=== PATIENT | female | born 1940 | race Caucasian/White ===

== ENCOUNTER → 2017-03-31 | Outpatient (CLI) | payer MEDICARE, BC ==
--- NOTE | 2017-03-31 14:28 | MM ---
Reason for exam: additional evaluation requested from prior study. Last mammogram was performed 1 year and 1 month ago. History: Patient is postmenopausal and has history of breast cancer at age 73. Family history of breast cancer in maternal aunt at age 75. Malignant US RT VAD breast biopsy of the right breast, February 10, 2014. Mastectomy of the right breast, 2013. Benign right mammotome panel of the right breast, September 03, 2005. Benign excisional biopsy of the right breast, July 23, 2001. Benign stereotactic core biopsy of the right breast, July 05, 2001. Core biopsy of the right breast. 2 excisional biopsies of the right breast. Physical Findings: Nurse did not find any significant physical abnormalities on exam. MG 3D Diag Mammo W/Cad LT CC and MLO view(s) were taken of the left breast. Prior study comparison: March 14, 2016, left breast MG 3d diag mammo w/cad LT. There are scattered fibroglandular densities. Calcifications stable. No significant new findings when compared with previous films. These results were verbally communicated with the patient and result sheet given to the patient on 03/31/17. ASSESSMENT: Benign, BI-RAD 2 RECOMMENDATION: Routine screening mammogram of the left breast in 1 year.
== END | disposition home or self-care (01) ==
LOC: RADMAMWWP 10:55
PROVIDERS: ATTEND Internal Medicine
DX: Z08 Encounter for follow-up examination after completed treatment for malignant neoplasm (principal); Z85.3 Personal history of malignant neoplasm of breast
CPT/HCPCS: G0206; G0279

== ENCOUNTER → 2018-05-11 | Outpatient (CLI) | payer MEDICARE, BC ==
--- NOTE | 2018-05-11 15:19 | MM ---
Reason for exam: additional evaluation requested from prior study. Last mammogram was performed 1 year and 1 month ago. History: Patient is postmenopausal and has history of breast cancer at age 73. Family history of breast cancer in maternal aunt at age 75. Malignant US RT VAD breast biopsy of the right breast, February 10, 2014. Mastectomy of the right breast, 2013. Benign right mammotome panel of the right breast, September 03, 2005. Benign excisional biopsy of the right breast, July 23, 2001. Benign stereotactic core biopsy of the right breast, July 05, 2001. Core biopsy of the right breast. 2 excisional biopsies of the right breast. Physical Findings: Nurse did not find any significant physical abnormalities on exam. MG 3D Diag Mammo W/Cad LT CC, MLO, and ML view(s) were taken of the left breast. Prior study comparison: March 31, 2017, left breast MG 3d diag mammo w/cad LT. March 14, 2016, left breast MG 3d diag mammo w/cad LT. There are scattered fibroglandular densities. Stable benign calcifications. There is no discrete abnormality. No significant new findings when compared with previous films. These results were verbally communicated with the patient and result sheet given to the patient on 05/11/18. ASSESSMENT: Benign, BI-RAD 2 RECOMMENDATION: Follow-up diagnostic mammogram of the left breast in 1 year.
--- NOTE | 2018-05-11 15:51 | BD ---
EXAMINATION TYPE: Axial Bone Density DATE OF EXAM: 05/11/2018 COMPARISON: 04/15/2016 CLINICAL HISTORY: Post menopausal female. Osteoporosis screening. Height: 58.7 IN Weight: 150 LBS RISK FACTORS HISTORY OF: Active: MODERATE Diet low in dairy products/other sources of calcium: YES Postmenopausal woman: AGE 52 Lost more than 2 inches in height since high school: YES 5 " MEDICATIONS: Thyroid Medications: YES Which medication: Levothyroxine How Lon+ YEARS Additional Medications: VIT D, CALCIUM, IBUPROFEN, ZANTAX, LEVOXYL, NORVASC, AVALIDE, ARIMIDEX, METFO RMIN Additional History: BREAST CANCER WITH CHEMO EXAM MEASUREMENTS: Bone mineral densitometry was performed using the [employer]. Bone mineral density as measured about the Lumbar spine is: ----- L1-L4(G/cm2): 0.998 T Score Values are as follows: ----- L2: -2.4 ----- L3: -1.3 ----- L4: -0.6 ----- L1-L4: -1.5 Bone mineral density has: Increased 9.6% since study of: 04/15/2016 Bone mineral density about the R hip (g/cm2): 0.710 Bone mineral density about the L hip (g/cm2): 0.665 T Score values are as follows: -----R Neck: -2.4 -----L Neck: -2.7 -----R Total: -1.9 -----L Total: -2.0 Bone mineral density has: Decreased -5.8% since study of: 04/15/2016 IMPRESSION: Osteoporosis (T Score less than -2.5). There is increased fracture risk and therapy is usually indicated based on age. Re-Screen 1-2 years. NOTE: T-SCORE=SD OF THE YOUNG ADULT MEAN.
== END | disposition home or self-care (01) ==
LOC: RADMAMWWP 13:33
PROVIDERS: ATTEND Internal Medicine
DX: Z08 Encounter for follow-up examination after completed treatment for malignant neoplasm (principal); Z85.3 Personal history of malignant neoplasm of breast; M81.0 Age-related osteoporosis without current pathological fracture
CPT/HCPCS: 77080; 77065; G0279; 77061

== ENCOUNTER → 2018-08-31 | Outpatient (CLI) | payer MEDICARE, BC ==
--- NOTE | 2018-08-31 13:13 | ECHOF ---
Referral Reason:I10 Hypertension I34.0 Mitral regurgitation MEASUREMENTS -------- HEIGHT: 152.4 cm WEIGHT: 67.6 kg BP: IVSd: 1.1 cm (0.6 - 1.1) LVIDd: 3.3 cm (3.9 - 5.3) LVPWd: 1.1 cm (0.6 - 1.1) IVSs: 1.3 cm LVIDs: 2.3 cm LVPWs: 1.3 cm LAESV Index (A-L): 25.56 ml/m Ao Diam: 2.6 cm (2.0 - 3.7) AV Cusp: 1.3 cm (1.5 - 2.6) LA Diam: 2.5 cm (2.7 - 3.8) MV E Naun: 0.75 m/s MV DecT: 400 ms MV A Naun: 1.30 m/s MV E/A Ratio: 0.58 RAP: 5.00 mmHg RVSP: 38.26 mmHg FINDINGS -------- Sinus rhythm. This was a technically adequate study. The left ventricular size is normal. There is borderline concentric left ventricular hypertrophy. Overall left ventricular systolic function is normal with, an EF between 55 - 60 %. The right ventricle is normal in size and function. Normal LA size by volume 22+/-6 ml/m2. The right atrium is normal in size. There is mild aortic valve sclerosis. Trace amount of aortic regurgitation. There is no evidence of aortic stenosis. Mild mitral annular calcification present. There is trace to mild mitral regurgitation. Mild tricuspid regurgitation present. There is borderline pulmonary hypertension. The right ventr icular systolic pressure, as measured by Doppler, is 38.26mmHg. The pulmonic valve was not well visualized. The aortic root size is normal. IVC Not well visulized. There is no pericardial effusion. CONCLUSIONS -------- 1. Sinus rhythm. 2. This was a technically adequate study. 3. The left ventricular size is normal. 4. There is borderline concentric left ventricular hypertrophy. 5. Overall left ventricular systolic function is normal with, an EF between 55 - 60 %. 6. Normal LA size by volume 22+/-6 ml/m2. 7. There is mild aortic valve sclerosis. 8. Trace amount of aortic regurgitation. 9. Mild mitral annular calcification present. 10. There is trace to mild mitral regurgitation. 11. Mild tricuspid regurgitation present. 12. There is borderline pulmonary hypertension. 13. The right ventricular systolic pressure, as measured by Doppler, is 38.26mmHg. 14. The pulmonic valve was not well visualized. 15. The aortic root size is normal. 16. IVC Not well visulized. 17. There is no pericardial effusion. HEALTH SCIENCES MANAGER: Adama Mario RDCS
== END | disposition home or self-care (01) ==
LOC: RADECHMAIN 11:20
PROVIDERS: ATTEND Internal Medicine
DX: I08.3 Combined rheumatic disorders of mitral, aortic and tricuspid valves (principal); I27.20 Pulmonary hypertension, unspecified; I11.9 Hypertensive heart disease without heart failure
CPT/HCPCS: 93306

== ENCOUNTER → 2018-09-20 | Outpatient (CLI) | payer MEDICARE, BC | LOC: LABPAT 12:15 | PROVIDERS: ATTEND Orthopaedic Surgery | DX: Z01.812 Encounter for preprocedural laboratory examination (principal) | CPT/HCPCS: 87070 ==

== ENCOUNTER 2018-09-28 05:24 | Inpatient (IN) | payer MEDICARE, BC ==
[2018-09-22 16:24] VITALS: BMI 28.3
[~2018-09-28 05:24] MED LIST: ACETAMINOPHEN TAB 500 MG TAB PO ONE; DEXAMETHASONE SOD PHOSPHATE 10 MG/ML 1 ML VIAL IV ONE; LIDOCAINE 1% 20 ML VIAL (10MG/ML) FOR IV START INTRADERMA PRN; MELOXICAM 7.5 MG TAB PO ONE; MIDAZOLAM (PF) 2 MG/2 ML VIAL IV PRN; ONDANSETRON 4 MG/2 ML VIAL IVP ONE; TRANEXAMIC ACID 1,000 MG in SODIUM CHLORIDE 0.9% 50 ML IVPB ONE; ceFAZolin IN SWFI 2 GM/20 ML SYRINGE IVP ONE; fentaNYL (PF) 50 MCG/ML 2 ML AMP IV PRN
[2018-09-28] MEDS ORDERED: ROPIVACAINE 246.25 MG, EPINEPHrine 0.5 MG, KETOROLAC 30 MG, cloNIDine HCL/PF 80 MCG, WA... MISCELLANE ONE ×5 (05:57)
[2018-09-28 06:17] LABS: Glucose,Whole Blood 144 mg/dL (75-99)
[2018-09-28] MEDS: LACTATED RINGERS 1,000 ML IV SCH (06:32)
[2018-09-28] MEDS ORDERED: fentaNYL (PF) 50 MCG/ML 2 ML AMP ONE (06:55)
[2018-09-28] MEDS ORDERED: SODIUM CHLORIDE 0.9% 100 ML BAG ONE (06:55)
[2018-09-28] MEDS ORDERED: TRANEXAMIC ACID 1,000 MG/10 ML VIAL ONE (06:55)
[2018-09-28] MEDS ORDERED: MIDAZOLAM 2 MG/2 ML VIAL ONE (06:55)
[2018-09-28] MEDS ORDERED: PROPOFOL 10 MG/ML 20 ML VIAL IV ONE (06:55)
[2018-09-28] MEDS ORDERED: DIAZEPAM 5 MG TAB PO PRN (06:56)
[2018-09-28] MEDS ORDERED: BISACODYL 10 MG SUPP RECTAL PRN (06:56)
[2018-09-28] MEDS ORDERED: NALOXONE 0.4 MG/ML 1 ML VIAL IV PRN (06:56)
[2018-09-28] MEDS ORDERED: NA PHOS,M-B/NA PHOS,DI-BA 133 ML ENEMA RECTAL PRN (06:56)
[2018-09-28] MEDS ORDERED: MAGNESIUM HYDROXIDE 2,400 MG/10 ML CUP PO PRN (06:56)
[2018-09-28] MEDS ORDERED: ONDANSETRON 4 MG/2 ML VIAL IVP PRN (06:56)
[2018-09-28] MEDS ORDERED: HYDROcodone/APAP 5-325MG 1 EACH TAB PO PRN (06:56)
[2018-09-28] MEDS ORDERED: HYDROmorphone 1 MG/ML 1 ML SYRINGE IVP PRN ×3 (06:56)
[2018-09-28] MEDS ORDERED: ceFAZolin 3,000 MG in SODIUM CHLORIDE 0.9% IRRIGATIO 3,000 ML IRRIGATION ONE (07:00)
[2018-09-28] MEDS ORDERED: ROPIVACAINE 1,100 MG, SODIUM CHLORIDE 0.9% 500 ML 330 ML MISCELLANE PRN ×2 (07:24)
--- NOTE | 2018-09-28 08:35 | P.OP ---
Date of Procedure: 09/28/18 Preoperative Diagnosis: Severe osteoarthritis right knee Postoperative Diagnosis: Severe osteoarthritis right knee Procedure(s) Performed: Right total knee arthroplasty Implants: [employer]edo [employer]hew Journey II BCS Oxinium bi-cruciate stabilized femoral component size 5, right [employer] right nonporous tibial baseplate size 4 Esc[employer] Journey II, XLPE constrained articular insert, size 9 mm, Size 3- 4 right [employer] BCS resurfacing oval patellar component, 29 mm All components were cemented using Palacos R bone cement.. The articulation is Oxinium on polyethylene. Anesthesia: spinal Surgeon: Lane Aparicio Punch Card Operator #1: Destiney Pelaez Estimated Blood Loss (ml): 25 Pathology: other (Bone and cartilage) Condition: stable Disposition: PACU Indications for Procedure: After failure of conservative treatment we discussed the surgical and nonsurgical treatment options at length. Patient wishes to proceed with a total knee arthroplasty. Complications specific to this procedure were discussed at length, including but not limited to infection, bleeding, stiffness , and nerve injury. Patient is aware of all these complications and informed consent was obtained Operative Findings: The operative findings are consistent with severe osteoarthritis the right knee with a significant valgus deformity Description of Procedure: Patient was seen in the preoperative area consent was reviewed and operative site was marked with a skin marker. Patient was then brought to the operating room and given preoperative antibiotics intravenously. A spinal anesthetic was administered by the anesthesia department. A tourniquet was placed on the upper thigh and the lower extremity was prepped and draped in usual sterile fashion. A gram of transexamic acid was given. A universal timeout was then performed which confirmed the patient's name, surgical site, ALLERGIES, and consent. The lower extremity was then exsanguinated and tourniquet was inflated to 250 mmHg. A standard and anterior midline approach to the knee was performed. The skin and subcutaneous tissue was dissected down to the patellar tendon. A medial parapatellar arthrotomy was then performed. The knee was then extended, the patellar was everted, and the knee was again flexed. Anterior horns of both menisci were excised, and a minimal medial release was performed because of the valgus deformity of the knee.. On gross visual inspection, there was complete loss of articular cartilage in all 3 compartments of the knee. There was also significant cartilage damage in the lateral compartment. There were multiple periarticular osteophytes which were then removed with a Ronguer. The femoral canal was then opened with the appropriate drill, and the intramedullary femoral cutting guide was then placed and set for 5 of valgus. The distal femoral cutting block was then pinned in place, and the distal femur was then cut. The cutting block was then removed and the cut was checked for flatness. Next, the sizing guide was then placed and set for 3 external rotation based off of the epicondylar axis and Whitesides line. After the femur was sized, the appropriate cutting block was then pinned in place. The anterior condyles were cut without notching. The posterior and chamfer cuts were performed while protecting the collateral ligaments. The cutting block was then removed. Attention was then directed to the tibia. The remaining ACL was removed with a Ronguer, and the tibia was then gently subluxed forward with a large bent knee retractor. Any remaining menisci was excised. The posterior lateral corner was cauterized in order to cauterize the lateral geniculate artery. The extra medullary tibial cutting guide was then placed, set for the appropriate rotation , slope, and depth of resection. The proximal tibia cutting guide was then pinned in place. Proximal tibia was then cut and sized. The femoral trial was then placed. The box cutting guide was placed and then using the appropriate reamer, the bone was reamed for the box. Then the box osteotome was used to finish the reaming. Next trials were then placed with the appropriate-sized insert. The knee was able to fully extend and flex to 130 and was stable throughout all range of motion. The knee was then extended, patella everted. Patella was then measured, and then using an osteotomy guide, the patella was cut at the appropriate level. The patella was then measured and drilled and the patella trial was then placed. The knee was then taken through range of motion with the patella trial and the patella tracked normally. The knee was then extended patella trial was then removed and the patella was everted. Knee was then flexed and lug holes were drilled through the femoral trial and the femoral trial was then removed. The tibial was then exposed, and the tibial broach guide was then pinned in place after it was set for the appropriate rotation to allow for the most coverage without overhang. The tibia was then broached. The cut surfaces of bone were then irrigated with pulsatile lavage. The posterior structures were injected with the ropivacaine solution. The components were then opened, the cement was mixed, and the components were then cemented in place. The cement was allowed to harden with the knee in full extension. While the cement was hardening, the remaining soft tissues were injected with the ropivacaine solution. After the cemented hardened. The tourniquet was released, and hemostasis was obtained. A second gram of transexamic acid was given. The knee was again irrigated. The knee was again taken through range of motion and found to be stable throughout all range of motion of 0-130, and the patella tracked normally. The fascia was then closed with #2 strata fix suture. The subcutaneous tissue was closed with 3-0 Vicryl and 3-0 strata fix. Dermabond glue was used for the skin, and the patient was placed in a sterile silver dressing. Patient was then transferred to recovery room in stable condition. The household personal assistant MARIA ELENA Finn was required due the complexity surgery and the need for a skilled medical staff assistant. She assisted in positioning, draping, retraction, and closure of the woundclosure of the wound.
--- NOTE | 2018-09-28 09:00 | P.ONQ ---
Anesthesiology Proc Note - PNB - Peripheral Nerve Block Performed Right Adductor Canal Infusion Time Out Performed: Yes Procedure Start Time: 06:35 Procedure Stop Time: 06:48 Indication: Requested by physician Specifically requested for management of pain by : Lane Aparicio Sedation Type: Sedate with meaningful contact maintained Preparation: Sterile Dressing Position: Supine Catheter: Indwelling Needle Types: Other (see comment) (pujunk) Needle Size: 100mm (4") Needle Gauge: 20 Technique: Ultrasound Injectate: 0.5% Ropivacaine (see comment for volume) Blood Aspirated: No Pain Paresthesia on Injection Noted: No Resistance on Injection: Normal Events: Uneventful and Well Tolerated
[2018-09-28] MEDS ORDERED: HYDROmorphone 1 MG/ML 1 ML SYRINGE IVP ONE ×3 (09:23→13:29)
[2018-09-28] MEDS: HYDROmorphone 1 MG/ML 1 ML SYRINGE IVP ONE ×2 (09:31→10:44)
--- NOTE | 2018-09-28 09:35 | XR ---
EXAMINATION TYPE: XR knee limited RT DATE OF EXAM: 09/28/2018 CLINICAL HISTORY: Right knee pain and arthritis status post total knee replacement. TECHNIQUE: Portable AP and crosstable lateral views of the right knee are obtained immediately posto peratively. COMPARISON: None FINDINGS: Metallic hardware from total right knee arthroplasty is seen and appears satisfactory in a lignment and position. There is evidence of recent surgery with diffuse subcutaneous gas soft tissue swelling noted. IMPRESSION: METALLIC HARDWARE FROM TOTAL RIGHT KNEE ARTHROPLASTY IS SATISFACTORY IN ALIGNMENT.
[2018-09-28] MEDS ORDERED: LACTATED RINGERS 1,000 ML IV ONE (11:29)
[2018-09-28] MEDS ORDERED: FAMOTIDINE 20 MG TAB PO PRN (17:20)
[2018-09-28] MEDS ORDERED: ARTIFICIAL TEARS-HYPROMELLOSE DROPS 15 ML BTL BOTH EYES PRN (17:20)
[2018-09-28] MEDS: ceFAZolin IN SWFI 2 GM/20 ML SYRINGE IVP SCH (17:44)
[2018-09-28] MEDS: SODIUM CHLORIDE 0.9% 1,000 ML IV SCH (19:35)
[2018-09-28] MEDS: ASPIRIN 325 MG TAB PO SCH (20:34)
[2018-09-28] MEDS: LOSARTAN 50 MG TAB PO SCH (20:34)
[2018-09-28] MEDS: HYDROCHLOROTHIAZIDE 25 MG TAB PO SCH (20:34)
[2018-09-28] MEDS: SENNOSIDES-DOCUSATE SODIUM 1 EACH TAB PO SCH (20:34)
[2018-09-28] MEDS: metFORMIN 500 MG TAB PO SCH (20:34)
[2018-09-28 20:59] LABS: Glucose,Whole Blood 186 mg/dL (75-99)
[2018-09-28] MEDS: ANASTROZOLE 1 MG TAB PO SCH (21:57)
--- NOTE | 2018-09-28 23:52 | CONS ---
CONSULTATION ATTENDING PHYSICIAN: Dr. Lane Aparicio. ATTENDING PHYSICIAN: Dr. Rubina Escobar. CHIEF COMPLAINT: Re-evaluation post surgery. HISTORY OF PRESENT ILLNESS: This is an elderly female who has undergone right total knee arthroplasty. The patient has significant degenerative arthritis and thus had been scheduled for this. She is doing relatively well postop. Pain is adequately controlled. She has been up with assistance and walked around the room. She denies any symptoms otherwise. Initially felt slightly lightheaded. She has underlying history of hypertension and diabetes mellitus. History of previous carcinoma of the breast. PAST MEDICAL HISTORY: As mentioned above, history of hypertension, diabetes mellitus, carcinoma of the breast tissue, degenerative arthritis. Significant also for mitral regurg. PAST SURGICAL HISTORY: Significant for cataracts, tonsillectomy, right mastectomy. PERSONAL HISTORY: Never smoker. Alcohol none. MEDICATIONS: Medication at home include: 1. Avapro 150/12.5 daily. 2. Metformin 500 mg daily. 3. Levothyroxine 112 mcg daily. 4. Amlodipine 5 mg daily. 5. Arimidex 1 mg tablet daily. SOCIAL HISTORY: Patient is . Her son does live with her. REVIEW OF SYSTEMS: NEURO: Denies any headaches or dizziness. PSYCH: No anxiety. Her apprehension as settled down. CARDIAC: Denies chest pain, angina, palpitations. RESPIRATORY: Denies shortness of breath, cough, hemoptysis. GI: No nausea, vomiting, abdominal pain, diarrhea. No bowel movements. : No symptoms of dysuria or hematuria. EXTREMITIES: Denies much pain in the right knee. HEMATOLOGIC: No anemia or bleeding disorders. ENDOCRINE: History of diabetes mellitus and hypothyroidism, on medical therapy. SKIN: Denies any rash or breakdown. CONSTITUTIONAL: No fevers or chills. PHYSICAL EXAMINATION: Pleasant female, at present in no distress. VITAL SIGNS: Temperature was recorded earlier at 97.8, pulse 83, respirations 16, blood pressure 147/70, pulse ox of 97 percent on room air. HEENT: Normocephalic. NECK: No JVD. CHEST: Clear to auscultation. CARDIAC: Normal S1, S2 with no gallops, murmurs. Systolic murmur 2/6 at the apex. ABDOMEN: Soft. Bowel sounds present. EXTREMITIES: No edema. Good pulses upper extremities. Mildly decreased pedal pulses. NEUROLOGIC: Awake, alert, oriented x3 with well-coordinated movements in both upper extremities. LABORATORY ASSESSMENT: Blood sugar 144 this morning. ASSESSMENT: 1. Diabetes mellitus, on close monitoring and coverage with insulin. 2. Hypertension, controlled. 3. History of carcinoma of the breast on medical therapy. 4. Status post right total knee arthroplasty. PLAN: The patient is stable. Continue present medical regimen. Patient's present medications are reviewed and reconciled and are reordered. MMODL / IJN: [id number] /
[2018-09-29] MEDS: HYDROcodone/APAP 5-325MG 1 EACH TAB PO PRN ×5 (00:36→21:36)
[2018-09-29] MEDS: hydrOXYzine PAMOATE 25 MG CAP PO PRN ×5 (00:37→21:35)
[2018-09-29] MEDS: ceFAZolin IN SWFI 2 GM/20 ML SYRINGE IVP SCH (00:38)
[2018-09-29] MEDS: SODIUM CHLORIDE 0.9% 1,000 ML IV SCH ×2 (00:38→18:41)
[2018-09-29] MEDS: LACTATED RINGERS 1,000 ML IV SCH (01:43)
[2018-09-29] MEDS: LEVOTHYROXINE 112 MCG TAB PO SCH (06:10)
[2018-09-29 07:10] LABS: Glucose,Whole Blood 110 mg/dL (75-99)
--- NOTE | 2018-09-29 07:31 | P.PN ---
Progress Note - Text Progress Note Date: 09/29/18 Postoperative day # 1 status post total knee arthroplasty, under spinal anesthesia, and adductor canal catheter placed for postoperative analgesia, currently at ropivacaine 0.2% 8 mL per hour and continuous infusion, visual analogue scale is 2-3/10, patient using oral pain medication for breakthrough pain. Assessment and plan= Acute postoperative pain, adductor canal catheter for pain control, pain is well controlled ,we'll continue the same management.
[2018-09-29 08:33] LABS: Basophils % (A) 0 %; Eosinophils # (A) 0.1 k/uL (0-0.7); Eosinophils % (A) 0 %; HCT 31.8 % (34.0-46.0); HGB 10.1 gm/dL (11.4-16.0); Lymphocytes # (A) 1.5 k/uL (1.0-4.8); Lymphocytes % (A) 12 %; MCH 26.3 pg (25.0-35.0); MCHC 31.8 g/dL (31.0-37.0); MCV 82.6 fL (80.0-100.0); Mean Platelet Volume 6.6; Monocytes # (A) 0.9 k/uL (0-1.0); Monocytes % (A) 7 %; Neutrophils # (A) 10.5 k/uL (1.3-7.7); Neutrophils % (A) 80 %; Platelet Count 360 k/uL (150-450); RBC 3.85 m/uL (3.80-5.40); RDW 14.3 % (11.5-15.5); WBC 13.1 k/uL (3.8-10.6)
--- NOTE | 2018-09-29 09:15 | P.PN ---
Subjective Progress Note Date: 09/29/18 This is a 77-year-old female status post right total knee arthroplasty. This is postoperative day #1. Patient is seen and evaluated at bedside with Dr. Lane Aparicio. Patient states that the right knee is sore, but her pain is controlled. Patient denies any fever/chills, numbness, weakness, tingling, abdominal pain, shortness of breath or chest pain. Objective - Vital Signs Vital signs: Vital Signs Temp 97.9 F 09/29/18 00:14 Pulse 76 09/29/18 00:14 Resp 18 09/29/18 00:14 BP 137/82 09/29/18 00:14 Pulse Ox 98 09/29/18 00:14 Intake & Output 09/28/18 09/29/18 09/29/18 18:59 06:59 18:59 Intake Total 501 1300 120 Output Total 25 Balance 476 1300 120 Weight 65.771 kg Intake: IV 501 Intake, IV Titration 1040 Amount Sodium Chloride 0.9% 1, 1040 000 ml @ 65 mls/hr IV . [id number] KENNETH Rx#:[id number] Oral 260 120 Output: Estimated Blood Loss 25 Other: Voiding Method Toilet # Voids 2 - Exam Vital signs are stable. Patient is in no acute distress and is alert and oriented 3. Calf is soft and nontender to palpation. Dressing is clean, dry, and intact. Patient has full foot and ankle motion without pain or difficulty. Neurovascular status and circulatory status are intact. - Labs CBC & Chem 7: 09/29/18 07:16 Labs: Abnormal Lab Results - Last 24 Hours (Table) 09/28/18 09/29/18 09/29/18 Range/Units 20:47 06:55 07:16 WBC 13.1 H (3.8-10.6) k/uL Hgb 10.1 L (11.4-16.0) gm/dL Hct 31.8 L (34.0-46.0) % Neutrophils # 10.5 H (1.3-7.7) k/uL POC Glucose (mg/dL) 186 H 110 H (75-99) mg/dL Assessment and Plan Assessment: Diabetes mellitus GERD History of GI bleed Hearing disorder Hypertension History of myocardial infarction Thyroid disorder History of breast cancer Neuropathy (1) Primary osteoarthritis of right knee Current Visit: Yes Status: Acute Code(s): M17.11 - UNILATERAL PRIMARY OSTEOARTHRITIS, RIGHT KNEE SNOMED Code(s): 617584379993106 (2) S/P total knee arthroplasty Current Visit: Yes Status: Acute Code(s): Z96.659 - PRESENCE OF UNSPECIFIED ARTIFICIAL KNEE JOINT SNOMED Code(s): 4962485896872 Plan: #1 Continue with routine postoperative care, leave dressing in place for ten days. #2 Anticoagulation with aspirin. #3 Physical therapy and CPM today. #4 Appreciate input from medicine. #5 Anticipate discharge to the [facility] on Thursday.
[2018-09-29] MEDS: MELOXICAM 7.5 MG TAB PO SCH (09:20)
[2018-09-29] MEDS: CHOLECALCIFEROL 1,000 UNIT TAB PO SCH (09:21)
[2018-09-29] MEDS: CALCIUM CARB-VIT D 500MG-200UN 1 EACH TAB PO SCH (09:21)
[2018-09-29] MEDS: ASPIRIN 325 MG TAB PO SCH ×2 (09:21→21:36)
[2018-09-29] MEDS: amLODIPine 5 MG TAB PO SCH (09:21)
[2018-09-29 11:36] LABS: Glucose,Whole Blood 138 mg/dL (75-99)
[2018-09-29 17:37] LABS: Glucose,Whole Blood 155 mg/dL (75-99)
[2018-09-29 20:37] LABS: Glucose,Whole Blood 179 mg/dL (75-99)
[2018-09-29] MEDS: ANASTROZOLE 1 MG TAB PO SCH (21:35)
[2018-09-29] MEDS: metFORMIN 500 MG TAB PO SCH (21:35)
[2018-09-29] MEDS: LOSARTAN 50 MG TAB PO SCH (21:36)
[2018-09-29] MEDS: HYDROCHLOROTHIAZIDE 25 MG TAB PO SCH (21:36)
[2018-09-29] MEDS: SENNOSIDES-DOCUSATE SODIUM 1 EACH TAB PO SCH (21:36)
--- NOTE | 2018-09-29 23:53 | PN ---
PROGRESS NOTE ATTENDING PHYSICIAN: Lane Aparicio MD. CONSULTING PHYSICIAN: Luís Escobar MD. CHIEF COMPLAINT: Re-evaluation. HISTORY OF PRESENT ILLNESS: A 77-year-old who was admitted to the hospital and underwent right total knee arthroplasty. The patient is doing relatively well. She is having some pain in the knee joint and at the site of the right mid thigh anteriorly. The patient denies otherwise any other symptoms. Mild dizziness when she got up yesterday. She has been up otherwise today. REVIEW OF SYSTEMS: NEURO: Denies any headaches, dizziness. PSYCH: No anxiety or depression. CARDIAC: No chest pain, angina, palpitations. RESPIRATORY: No shortness of breath, cough. GI: No nausea, vomiting, abdominal pain. No bowel movements. : No symptoms of dysuria, hematuria. EXTREMITIES: Pain in the right knee at site of surgery. CONSTITUTIONAL: No fevers or chills. PHYSICAL EXAMINATION: Pleasant female in no distress. Vital signs reveal temperature 97.9, pulse 73, respirations 16, blood pressure 136/56, pulse ox 97% on room air. HEENT: Normocephalic. NECK: Supple. No JVD. CHEST: Clear to auscultation and percussion. CARDIAC: Normal S1, S2 with no gallop. Systolic murmur 2/6 at apex. ABDOMEN: Soft. Bowel sounds present. EXTREMITIES: No edema. NEUROLOGIC: Awake, alert, oriented x3 with well-coordinated movements of upper extremities. LABORATORY ASSESSMENT: CBC which shows a hemoglobin of 10.1, blood sugars are in adequate range. White count is 13.1. ASSESSMENT: 1. Status post right total knee arthroplasty. 2. Diabetes mellitus, on medical therapy. 3. History of cancer of the breast. 4. Anemia secondary to acute blood loss. PLAN: The patient is stable. Continue present medical regimen. Patient's condition discussed with the patient. Prognosis guarded. The patient is scheduled for transfer to nursing facility for rehab. MMODL / IJN: [id number] /
[2018-09-30] MEDS: HYDROcodone/APAP 5-325MG 1 EACH TAB PO PRN ×4 (04:42→23:22)
[2018-09-30] MEDS: hydrOXYzine PAMOATE 25 MG CAP PO PRN (04:42)
[2018-09-30] MEDS: LEVOTHYROXINE 112 MCG TAB PO SCH (06:44)
[2018-09-30 07:40] LABS: Glucose,Whole Blood 108 mg/dL (75-99)
[2018-09-30] MEDS: ASPIRIN 325 MG TAB PO SCH ×2 (07:46→20:08)
[2018-09-30] MEDS: MELOXICAM 7.5 MG TAB PO SCH (07:46)
[2018-09-30] MEDS: amLODIPine 5 MG TAB PO SCH (07:46)
[2018-09-30] MEDS: CALCIUM CARB-VIT D 500MG-200UN 1 EACH TAB PO SCH (07:46)
[2018-09-30] MEDS: CHOLECALCIFEROL 1,000 UNIT TAB PO SCH (07:47)
[2018-09-30 12:03] LABS: Glucose,Whole Blood 120 mg/dL (75-99)
--- NOTE | 2018-09-30 12:23 | P.PN ---
Subjective Progress Note Date: 09/30/18 This is a 77-year-old female status post right total knee arthroplasty. This is postoperative day #2. Patient is seen and evaluated at bedside with Dr. Lane Aparicio. Patient states that the right knee is painful, but tolerable. Patient denies any new complaints today and has been up and walking with physical therapy. Patient denies any fever/chills, numbness, weakness, tingling , abdominal pain, shortness of breath or chest pain. Objective - Vital Signs Vital signs: Vital Signs Temp 98.4 F 09/30/18 07:00 Pulse 76 09/30/18 07:00 Resp 16 09/30/18 07:00 BP 153/74 09/30/18 07:00 Pulse Ox 96 09/30/18 07:00 Intake & Output 09/29/18 09/30/18 09/30/18 18:59 06:59 18:59 Intake Total 360 Balance 360 Intake: Oral 360 Other: Voiding Method Toilet # Voids 3 2 - Exam Vital signs are stable. Patient is in no acute distress and is alert and oriented 3. Calf is soft and nontender to palpation. Dressing is clean, dry, and intact. Patient has full foot and ankle motion without pain or difficulty. Neurovascular status and circulatory status are intact. - Labs CBC & Chem 7: 09/29/18 07:16 Labs: Abnormal Lab Results - Last 24 Hours (Table) 09/29/18 09/29/18 09/30/18 Range/Units 17:23 20:26 07:06 POC Glucose (mg/dL) 155 H 179 H 108 H (75-99) mg/dL 09/30/18 Range/Units 11:50 POC Glucose (mg/dL) 120 H (75-99) mg/dL Assessment and Plan Assessment: Diabetes mellitus GERD History of GI bleed Hearing disorder Hypertension History of myocardial infarction Thyroid disorder History of breast cancer Neuropathy (1) Primary osteoarthritis of right knee Current Visit: Yes Status: Acute Code(s): M17.11 - UNILATERAL PRIMARY OSTEOARTHRITIS, RIGHT KNEE SNOMED Code(s): 097041398811710 (2) S/P total knee arthroplasty Current Visit: Yes Status: Acute Code(s): Z96.659 - PRESENCE OF UNSPECIFIED ARTIFICIAL KNEE JOINT SNOMED Code(s): 4854449711724 Plan: #1 Continue with routine postoperative care, leave dressing in place for ten days. #2 Anticoagulation with aspirin. #3 Physical therapy and CPM today. #4 Appreciate input from medicine. #5 Anticipate discharge to the [facility] on Thursday.
[2018-09-30] MEDS ORDERED: FAMOTIDINE 20 MG TAB PO PRN (13:49)
[2018-09-30 17:22] LABS: Glucose,Whole Blood 148 mg/dL (75-99)
[2018-09-30] MEDS: metFORMIN 500 MG TAB PO SCH (20:08)
[2018-09-30] MEDS: HYDROCHLOROTHIAZIDE 25 MG TAB PO SCH (20:08)
[2018-09-30] MEDS: SENNOSIDES-DOCUSATE SODIUM 1 EACH TAB PO SCH (20:08)
[2018-09-30] MEDS: LOSARTAN 50 MG TAB PO SCH (20:09)
[2018-09-30] MEDS: ANASTROZOLE 1 MG TAB PO SCH (20:09)
[2018-09-30 20:20] LABS: Glucose,Whole Blood 158 mg/dL (75-99)
[2018-10-01] MEDS: HYDROcodone/APAP 5-325MG 1 EACH TAB PO PRN ×2 (04:23→09:37)
[2018-10-01 07:42] LABS: Glucose,Whole Blood 103 mg/dL (75-99)
[2018-10-01] MEDS: CALCIUM CARB-VIT D 500MG-200UN 1 EACH TAB PO SCH (07:42)
[2018-10-01] MEDS: MELOXICAM 7.5 MG TAB PO SCH (07:42)
[2018-10-01] MEDS: CHOLECALCIFEROL 1,000 UNIT TAB PO SCH (07:42)
[2018-10-01] MEDS: ASPIRIN 325 MG TAB PO SCH (07:43)
[2018-10-01] MEDS: amLODIPine 5 MG TAB PO SCH (07:43)
[2018-10-01 07:49] VITALS: BP 144/64; PULSE 66; RESP 16; TEMP 98
[2018-10-01 08:46] LABS: Basophils % (A) 0 %; Eosinophils # (A) 0.3 k/uL (0-0.7); Eosinophils % (A) 3 %; HCT 31.5 % (34.0-46.0); HGB 9.9 gm/dL (11.4-16.0); Hypochromasia Slight; Lymphocytes # (A) 1.8 k/uL (1.0-4.8); Lymphocytes % (A) 19 %; MCH 26.4 pg (25.0-35.0); MCHC 31.4 g/dL (31.0-37.0); Mean Platelet Volume 6.6; Monocytes # (A) 0.6 k/uL (0-1.0); Monocytes % (A) 6 %; Neutrophils # (A) 6.6 k/uL (1.3-7.7); Neutrophils % (A) 70 %; Platelet Count 359 k/uL (150-450); RBC 3.75 m/uL (3.80-5.40); RDW 14.2 % (11.5-15.5); WBC 9.5 k/uL (3.8-10.6)
--- NOTE | 2018-10-01 10:02 | P.DS ---
Providers Date of admission: 09/28/18 05:24 Expected date of discharge: 10/01/18 Attending physician: Lane Aparicio Consults: 09/28/18 06:56 Consult Physician Routine Consulting Provider: Jose Escobar Consult Reason/Comments: medical management Do you want consulting provider notified?: Yes Primary care physician: Jose Escobar - Discharge Diagnosis(es) (1) Primary osteoarthritis of right knee Current Visit: Yes Status: Acute (2) S/P total knee arthroplasty Current Visit: Yes Status: Acute Hospital Course: This is a 77-year-old female with known history of degenerative arthritis of the right knee. The patient presents for evaluation. After discussion and consideration patient elects to proceed with total knee arthroplasty. The patient is seen preoperatively by Dr. Aparicio and medically cleared for surgery by their primary care physician. Patient is admitted to [facility] on 09/28/2018 for total knee arthroplasty. The procedures performed without complication or sequelae. The patient is doing well postoperatively. Labs and vital signs are stable on day of discharge. On day of discharge patient's knee incision is healing well. There is minimal erythema. There is no drainage noted at this time. There is minimal soft tissue swelling to the knee. Patient has full foot and ankle motion without difficulty or pain. Neurovascular status to the right lower extremity is intact. Patient is discharged to rehab in good condition. Please see med rec for accurate list of home medications. Plan - Discharge Summary Discharge Rx Participant: Yes New Discharge Prescriptions: New Aspirin 325 mg PO BID #60 tab HYDROcodone/APAP 5-325MG [[place]ber[place] 5-325] 1 - 2 tab PO Q4-6H PRN #84 tab PRN Reason: Pain Sennosides [Senokot] 1 tab PO BID #60 tablet No Action Levothyroxine Sodium [Levoxyl] 112 mcg PO SUMOWETHSA Irbesartan/Hydrochlorothiazide [Avalide 150-12.5 mg Tablet] 2 tab PO HS Ibuprofen [Advil] 400 tab PO BID PRN PRN Reason: Pain amLODIPine BESYLATE [Norvasc] 5 mg PO DAILY Acetaminophen Tab [Tylenol] 1,000 mg PO Q6HR PRN PRN Reason: Pain Ranitidine HCl [Zantac] 150 mg PO AC-BID PRN PRN Reason: Pain metFORMIN HCL [Glucophage] 500 mg PO HS Anastrozole [Arimidex] 1 mg PO HS Propylene Glycol/Peg 400 [Systane Ultra 0.4-0.3% Eye Drp] 2 drop BOTH EYES QID PRN PRN Reason: DRY EYES Cholecalciferol [Vitamin D3] 2,000 unit PO DAILY Calcium Carbonate/Vitamin D3 [Calcium 600-Vit D3 400 Caplet] 1 tab PO DAILY Discharge Medication List Acetaminophen Tab [Tylenol] 1,000 mg PO Q6HR PRN 02/22/14 [History] Ibuprofen [Advil] 400 tab PO BID PRN 02/22/14 [History] Irbesartan/Hydrochlorothiazide [Avalide 150-12.5 mg Tablet] 2 tab PO HS [History] Levothyroxine Sodium [Levoxyl] 112 mcg PO SUMOWETHSA 02/22/14 [History] Ranitidine HCl [Zantac] 150 mg PO AC-BID PRN 02/22/14 [History] amLODIPine BESYLATE [Norvasc] 5 mg PO DAILY 02/22/14 [History] Anastrozole [Arimidex] 1 mg PO HS 09/22/18 [History] Calcium Carbonate/Vitamin D3 [Calcium 600-Vit D3 400 Caplet] 1 tab PO DAILY 03/05 [History] Cholecalciferol [Vitamin D3] 2,000 unit PO DAILY 09/22/18 [History] Propylene Glycol/Peg 400 [Systane Ultra 0.4-0.3% Eye Drp] 2 drop BOTH EYES QID PRN 09/22/18 [History] metFORMIN HCL [Glucophage] 500 mg PO HS 09/22/18 [History] Aspirin 325 mg PO BID #60 tab 10/01/18 [Rx] HYDROcodone/APAP 5-325MG [[place]on 5-325] 1 - 2 tab PO Q4-6H PRN #84 tab 10/01/18 [ Rx] Sennosides [Senokot] 1 tab PO BID #60 tablet 10/01/18 [Rx] Follow up Appointment(s)/Referral(s): Lane Aparicio DO [Doctor of Osteopathic Medicine] - 10/18/18 8:30 am Ambulatory/Diagnostic Orders: Continuous Passive Motion (CPM) Machine [DME.AMB1] Time Frame: 3 Weeks, Location : None Selected Activity/Diet/Wound Care/Special Instructions: Weightbearing as tolerated with a walker. CPM 5-6h daily. Leave dressing intact. May be removed by home care nurse in 10 days. May shower with dressing on. Please follow up with [facility] and call with any questions or concerns, .
[2018-10-01 12:12] LABS: Glucose,Whole Blood 107 mg/dL (75-99)
--- NOTE | 2018-10-01 13:04 | PN ---
PROGRESS NOTE DATE OF SERVICE: 09/30/2018 CHIEF COMPLAINT: Re-evaluation. HISTORY OF PRESENT ILLNESS: This is a 77-year-old female seen on 07/31/2018. The chart could not be the patient seen on 09/30/2018. Chart could not be completed because the computers were down. The patient is post total right knee arthroplasty. Doing fairly well. REVIEW OF SYSTEMS: NEURO: Denies any headaches, dizziness. PSYCH: No anxiety. CARDIAC: No chest pain, angina, palpitation. RESPIRATORY: No shortness of breath, cough, hemoptysis. GI: Some heartburn. No nausea, vomiting, abdominal pain, diarrhea, constipation, diarrhea. No bowel movement. : No symptoms of dysuria, hematuria. EXTREMITIES: No pain except for the right knee. CONSTITUTIONAL: No fever, chills. PHYSICAL EXAMINATION: Pleasant female in no distress. Vital signs reveals temperature 98.4, pulse 76, respirations 16, blood pressure 153/74, pulse ox 96% on room air. HEENT: Normocephalic. NECK: No JVD. CHEST: Clear to auscultation and percussion. CARDIAC: Normal S1, S2 with no gallops. Systolic murmur 2/6, apex. ABDOMEN: Soft. Bowel sounds present. EXTREMITIES: Reveal no edema. Neurologically awake, alert, oriented with well-coordinated movements both upper extremities. Right lower leg pain with movement to the right knee joint. CONSTITUTIONAL: No fever, chills. LABORATORY ASSESSMENT: Blood sugar is adequately controlled. ASSESSMENT: 1. Diabetes mellitus type 2 with controlled blood sugars. 2. Essential hypertension, controlled. 3. History of peripheral neuropathy post chemotherapy. 4. Status post right knee arthroplasty. 5. Mitral regurgitation, stable. PLAN: Patient is stable. Continue present medical regimen. Medical regimen, patient's condition discussed with the patient. Prognosis guarded. MMODL / IJN: [id number] /
--- NOTE | 2018-10-01 20:49 | PN ---
PROGRESS NOTE ATTENDING PHYSICIAN: Dr. Lane Aparicio. CONSULTING PHYSICIAN: Dr. Luís Escobar. CHIEF COMPLAINT: Re-evaluation. HISTORY OF PRESENT ILLNESS: This is a 77-year-old female who was admitted to the facility and undergone right total knee arthroplasty. The patient feels relatively well. She does have some pain in the right knee joint, but tolerable. She is doing well with therapy. REVIEW OF SYSTEMS: Neuro: Denies any headaches, dizziness. Psych: No anxiety. Cardiac: No chest pain, angina or palpitations. Respiratory: No shortness of breath, cough, hemoptysis. GI: Occasional heartburn. No nausea, vomiting, abdominal pain. No bowel movement. no symptoms of dysuria, hematuria. Extremities: No pain except for the right knee. CONSTITUTIONAL: No fever, chills. PHYSICAL EXAMINATION: Pleasant female in no distress. Vital signs reveals temperature 98, pulse 66, respirations 16, blood pressure 144/64, pulse ox 97% on room air. HEENT: Normocephalic. Neck no JVD. CHEST: Clear to auscultation and percussion. Cardiac: Normal S1, S2 with no gallops. Systolic murmur 2/6 at the apex. ABDOMEN: Soft. Bowel sounds normal. Extremities reveal no edema. . The right knee has a dressing. Neurologically: Awake, alert, oriented with well-coordinated movements both upper extremities. LABORATORY ASSESSMENT: CBC which showed a hemoglobin 9.9, otherwise unremarkable. Sugar was 103 this morning. ASSESSMENT: 1. Anemia secondary to acute blood loss. 2. Diabetes mellitus, controlled. 3. Status post right total knee arthroplasty. 4. Mitral regurgitation. PLAN: The patient is stable. Continue present medical regimen. Patient's condition discussed with the patient. Prognosis guarded. MMODL / IJN: [id number] /
== END 2018-10-01 14:41 | DRG 470 ==
LOC: 2ORMAIN 05:24 → 4SSUR 13:37
PROVIDERS: ADMIT Orthopaedic Surgery; ATTEND Orthopaedic Surgery
PROC: 0SRC069 Replacement of Right Knee Joint with Oxidized Zirconium on Polyethylene Synthetic Substitute, Cemented, Open Approach (ICD-10-PCS; principal; 2018-09-28 07:00)
DX: M17.11 Unilateral primary osteoarthritis, right knee (principal); D62 Acute posthemorrhagic anemia; E07.9 Disorder of thyroid, unspecified; E11.40 Type 2 diabetes mellitus with diabetic neuropathy, unspecified; G89.18 Other acute postprocedural pain; H91.90 Unspecified hearing loss, unspecified ear; I10 Essential (primary) hypertension; I25.2 Old myocardial infarction; I34.0 Nonrheumatic mitral (valve) insufficiency; K21.9 Gastro-esophageal reflux disease without esophagitis; M21.061 Valgus deformity, not elsewhere classified, right knee; Z85.3 Personal history of malignant neoplasm of breast; Z90.11 Acquired absence of right breast and nipple; Z98.49 Cataract extraction status, unspecified eye; Z79.84 Long term (current) use of oral hypoglycemic drugs; Z79.890 Hormone replacement therapy; Z79.899 Other long term (current) drug therapy
CPT/HCPCS: 85025; 88305; 88311

== ENCOUNTER → 2019-06-08 | Outpatient (CLI) | payer MEDICARE, BC ==
--- NOTE | 2019-06-08 10:23 | MM ---
Reason for exam: additional evaluation requested from prior study. Last mammogram was performed 1 year and 1 month ago. History: Patient is postmenopausal and has history of breast cancer at age 73. Family history of breast cancer in maternal aunt at age 75. Malignant US RT VAD breast biopsy of the right breast, February 10, 2014. Mastectomy of the right breast, 2013. Benign right mammotome panel of the right breast, September 03, 2005. Benign excisional biopsy of the right breast, July 23, 2001. Benign stereotactic core biopsy of the right breast, July 05, 2001. Core biopsy of the right breast. 2 excisional biopsies of the right breast. Physical Findings: Nurse did not find any significant physical abnormalities on exam. MG 3D Diag Mammo W/Cad LT CC and MLO view(s) were taken of the left breast. Prior study comparison: May 11, 2018, left breast MG 3d diag mammo w/cad LT. March 31, 2017, left breast MG 3d diag mammo w/cad LT. The breast tissue is heterogeneously dense. This may lower the sensitivity of mammography. Finding: There are typically benign round, diffuse/scattered calcifications in the left breast. Focal asymmetry left upper middle breast, not on compression MLO. No significant changes in finding since May 11, 2018 and March 31, 2017. These results were verbally communicated with the patient and result sheet given to the patient on 06/08/19. ASSESSMENT: Benign, BI-RAD 2 RECOMMENDATION: Follow-up diagnostic mammogram of the left breast in 1 year.
== END | disposition home or self-care (01) ==
LOC: RADMAMWWP 09:30
PROVIDERS: ATTEND Internal Medicine
DX: Z08 Encounter for follow-up examination after completed treatment for malignant neoplasm (principal); Z85.3 Personal history of malignant neoplasm of breast
CPT/HCPCS: 77065; G0279; 77061

== ENCOUNTER → 2020-07-19 | Outpatient (CLI) | payer MEDICARE, BC ==
--- NOTE | 2020-07-20 08:00 | MM ---
Reason for exam: additional evaluation requested from prior study. Last mammogram was performed 1 year and 1 month ago. History: Patient is postmenopausal and has history of breast cancer at age 73. Family history of breast cancer in maternal aunt at age 75. Malignant US RT VAD breast biopsy of the right breast, February 10, 2014. Mastectomy of the right breast, 2013. Benign right mammotome panel of the right breast, September 03, 2005. Benign excisional biopsy of the right breast, July 23, 2001. Benign stereotactic core biopsy of the right breast, July 05, 2001. Core biopsy of the right breast. 2 excisional biopsies of the right breast. Physical Findings: Nurse did not find any significant physical abnormalities on exam. MG 3D Diag Mammo W/Cad LT CC and MLO view(s) were taken of the left breast. Prior study comparison: June 08, 2019, left breast MG 3d diag mammo w/cad LT. May 11, 2018, left breast MG 3d diag mammo w/cad LT. Stable benign calcifications. Nodular density right breast 10 o'clock consistent with superficial skin lesion/blackhead. These results were verbally communicated with the patient and result sheet given to the patient on 07/19/20. ASSESSMENT: Benign, BI-RAD 2 RECOMMENDATION: Follow-up diagnostic mammogram of both breasts in 1 year. Manage patient on a clinical basis.
== END | disposition home or self-care (01) ==
LOC: RADMAMWWP 14:43
PROVIDERS: ATTEND Internal Medicine
DX: Z08 Encounter for follow-up examination after completed treatment for malignant neoplasm (principal); Z85.3 Personal history of malignant neoplasm of breast
CPT/HCPCS: 77065; G0279; 77061

== ENCOUNTER 2021-04-09 13:22 | Observation (INO) | payer MEDICARE, BC ==
--- NOTE | 2021-04-09 13:50 | ED ---
General Adult HPI <Usman Escalante - Last Filed: 04/09/21 16:41> - General Source: patient Mode of arrival: ambulatory Limitations: no limitations <Rosendo Crespo - Last Filed: 04/12/21 11:58> - General Chief complaint: Eye Problems Stated complaint: vision problems Time Seen by Provider: 04/09/21 13:35 - History of Present Illness Initial comments: Dictation was produced using [employer] dictation software. please excuse any grammatical, word or spelling errors. Chief Complaint: 80-year-old female sent in by driveway sealer for diplopia History of Present Illness: Is an 80-year-old female she's had multiple days of double vision. She went to see the driveway sealer. She was evaluated and was told to come to the emergency department for concerns of third nerve palsy. Pat ilene states she's had symptoms like this in the past. She reports it has been worked up however no obvious findings were discovered. Symptoms resolved on its own until recently when it returned. Patient has any headache. No other complaints at this time. She states that when stare straight her diplopia is apparent. She states that it goes away with lateral gaze. The ROS documented in this emergency department record has been reviewed and confirmed by me. Those systems with pertinent positive or negative responses have been documented in the HPI. All other systems are other negative and/or noncontributory. PHYSICAL EXAM: General Impression: Alert and oriented x3, not in acute distress HEENT: Normocephalic atraumatic, extra-ocular movements intact, pupils equal and reactive to light bilaterally, mucous membranes moist. Ocular: very mild right down and out pupil with accompanying ptosis Cardiovascular: Heart regular rate and rhythm Chest: Able to complete full sentences, no retractions, no tachypnea Abdomen: abdomen soft, non-tender, non-distended, no organomegaly Musculoskeletal: Pulses present and equal in all extremities, no peripheral edema Motor: no focal deficits noted Neurological: CN II-XII grossly intact, no focal motor or sensory deficits noted Skin: Intact with no visualized rashes Psych: Normal affect and mood ED course: 80-year-old female presents to the emergency department for diplopia. Vital signs upon arrival are within acceptable limits. Patient's well appearing at bedside. She does not have a headache. Case is discussed with neurologist foot and ankle surgeon Dr. Prajapati who requests that CT imaging be obtained due to likely delay with MR. He does request ordering of MRI of the brain with urgent status.Computed tomography scan of the brain shows no acute intracranial processes. CT angiography of the head and neck shows no acute processes. Laboratory evaluation is unremarkable. Patient be admitted with consultation to neurology and opthamology. (Rosendo Crespo) - Related Data Home Medications Medication Instructions Recorded Confirmed Levothyroxine Sodium [Levoxyl] 112 mcg PO SUMOWETHSA 02/22/14 04/09/21 amLODIPine BESYLATE [Norvasc] 5 mg PO DAILY 02/22/14 04/09/21 Anastrozole [Arimidex] 1 mg PO DAILY 09/22/18 04/09/21 metFORMIN HCL [Glucophage] 500 mg PO DAILY 09/22/18 04/09/21 Esomeprazole Magnesium [NexIUM] 40 mg PO DAILY 04/09/21 04/09/21 Multivitamins, Thera [Multivitamin 1 tab PO DAILY 04/09/21 04/09/21 (formulary)] Previous Rx's Medication Instructions Recorded Atorvastatin Calcium [Lipitor] 10 mg PO HS #30 tab 04/10/21 Lisinopril [Prinivil] 10 mg PO DAILY #30 tab 04/10/21 Allergies Allergy/AdvReac Type Severity Reaction Status Date / Time adhesive tape Allergy Rash/Hives Verified 04/09/21 13:28 adhesive AdvReac ADHESIVE Verified 04/09/21 13:28 TAPES MAKE SKIN RED, ITCHY Review of Systems ROS Other: All systems not noted in ROS Statement are negative. <Usman Escalante - Last Filed: 04/09/21 16:41> ROS Other: All systems not noted in ROS Statement are negative. <Rosendo Crespo - Last Filed: 04/12/21 11:58> ROS Statement: Those systems with pertinent positive or pertinent negative responses have been documented in the HPI. 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 Past Psychological History: No Psychological Hx Reported Smoking Status: Never smoker Past Alcohol Use History: None Reported Past Drug Use History: None Reported - Past Family History Mother Family Medical History: No Reported History <Rosendo Crespo - Last Filed: 04/12/21 11:58> General Exam Limitations: no limitations <Rosendo Crespo - Last Filed: 04/12/21 11:58> Course Vital Signs 04/09/21 13:29 Temperature 98.6 F Pulse Rate 99 Respiratory 16 Rate Blood Pressure 146/65 O2 Sat by Pulse 100 Oximetry Medical Decision Making - Lab Data Result diagrams: 04/09/21 14:13 04/09/21 14:13 <Usman Escalante - Last Filed: 04/09/21 16:41> - Lab Data Result diagrams: 04/10/21 04:37 04/10/21 04:37 <Rosendo Crespo - Last Filed: 04/12/21 11:58> - Medical Decision Making The patient's care was passed on from previous shift. The CT of the brain without contrast does not show any acute processes. The CTA of the head and neck also does not show any acute abnormalities. Laboratory shows hyponatremia and hypochloremia. Case is discussed with internal medicine by prior shift and patient is admitted to the hospital with neurology to consult. (Usman Escalante) - Lab Data Lab Results 04/09/21 04/09/21 04/09/21 Range/Units 14:13 14:13 14:13 WBC 11.5 H (3.8-10.6) k/uL RBC 4.30 (3.80-5.40) m/uL Hgb 11.6 (11.4-16.0) gm/dL Hct 33.6 L (34.0-46.0) % MCV 78.1 L (80.0-100.0) fL MCH 27.0 (25.0-35.0) pg MCHC 34.5 (31.0-37.0) g/dL RDW 13.4 (11.5-15.5) % Plt Count 456 H (150-450) k/uL MPV 6.4 Neutrophils % 75 % Lymphocytes % 17 % Monocytes % 6 % Eosinophils % 1 % Basophils % 1 % Neutrophils # 8.6 H (1.3-7.7) k/uL Lymphocytes # 1.9 (1.0-4.8) k/uL Monocytes # 0.6 (0-1.0) k/uL Eosinophils # 0.1 (0-0.7) k/uL Basophils # 0.1 (0-0.2) k/uL ESR 10 (0-20) mm/hr PT 10.1 (9.0-12.0) sec INR 0.9 (<1.2) APTT 22.4 (22.0-30.0) sec Sodium 120 L (137-145) mmol/L Potassium 3.6 (3.5-5.1) mmol/L Chloride 88 L (98-107) mmol/L Carbon Dioxide 21 L (22-30) mmol/L Anion Gap 11 mmol/L BUN 33 H (7-17) mg/dL Creatinine 1.09 H (0.52-1.04) mg/dL Est GFR (CKD-EPI)AfAm 56 (>60 ml/min/1.73 sqM) Est GFR (CKD-EPI)NonAf 48 (>60 ml/min/1.73 sqM) Glucose 144 H (74-99) mg/dL Calcium 9.9 (8.4-10.2) mg/dL Magnesium 1.9 (1.6-2.3) mg/dL C-Reactive Protein 0.8 (<1.0) mg/dL Coronavirus (PCR) (Not Detectd) 04/09/21 Range/Units 14:15 WBC (3.8-10.6) k/uL RBC (3.80-5.40) m/uL Hgb (11.4-16.0) gm/dL Hct (34.0-46.0) % MCV (80.0-100.0) fL MCH (25.0-35.0) pg MCHC (31.0-37.0) g/dL RDW (11.5-15.5) % Plt Count (150-450) k/uL MPV Neutrophils % % Lymphocytes % % Monocytes % % Eosinophils % % Basophils % % Neutrophils # (1.3-7.7) k/uL Lymphocytes # (1.0-4.8) k/uL Monocytes # (0-1.0) k/uL Eosinophils # (0-0.7) k/uL Basophils # (0-0.2) k/uL ESR (0-20) mm/hr PT (9.0-12.0) sec INR (<1.2) APTT (22.0-30.0) sec Sodium (137-145) mmol/L Potassium (3.5-5.1) mmol/L Chloride (98-107) mmol/L Carbon Dioxide (22-30) mmol/L Anion Gap mmol/L BUN (7-17) mg/dL Creatinine (0.52-1.04) mg/dL Est GFR (CKD-EPI)AfAm (>60 ml/min/1.73 sqM) Est GFR (CKD-EPI)NonAf (>60 ml/min/1.73 sqM) Glucose (74-99) mg/dL Calcium (8.4-10.2) mg/dL Magnesium (1.6-2.3) mg/dL C-Reactive Protein (<1.0) mg/dL Coronavirus (PCR) Not Detected (Not Detectd) Disposition Time of Disposition: 15:00 Decision Date: 04/09/21 Decision Time: 15:00 <Usman Escalante - Last Filed: 04/09/21 16:41> <Rosendo Crespo - Last Filed: 04/12/21 11:58> Clinical Impression: Third nerve palsy, Hypertension, Hyponatremia, Hypochloremia Disposition: ADMITTED IP TO THIS [facility] Condition: Stable
[2021-04-09] MEDS ORDERED: NALOXONE 0.4 MG/ML 1 ML VIAL IV PRN (14:04)
[2021-04-09 14:30] LABS: Basophils # (A) 0.1 k/uL (0-0.2); Basophils % (A) 1 %; Eosinophils # (A) 0.1 k/uL (0-0.7); Eosinophils % (A) 1 %; HCT 33.6 % (34.0-46.0); HGB 11.6 gm/dL (11.4-16.0); Lymphocytes # (A) 1.9 k/uL (1.0-4.8); Lymphocytes % (A) 17 %; MCHC 34.5 g/dL (31.0-37.0); MCV 78.1 fL (80.0-100.0); Mean Platelet Volume 6.4; Monocytes # (A) 0.6 k/uL (0-1.0); Monocytes % (A) 6 %; Neutrophils # (A) 8.6 k/uL (1.3-7.7); Neutrophils % (A) 75 %; Platelet Count 456 k/uL (150-450); RDW 13.4 % (11.5-15.5); WBC 11.5 k/uL (3.8-10.6)
[2021-04-09 15:00] LABS: C Reactive Protein 0.8 mg/dL (<1.0); Calcium 9.9 mg/dL (8.4-10.2); INR 0.9 (<1.2); Magnesium 1.9 mg/dL (1.6-2.3); Partial Thromboplastin Time 22.4 sec (22.0-30.0); Potassium 3.6 mmol/L (3.5-5.1); Prothrombin Time 10.1 sec (9.0-12.0)
[2021-04-09] MEDS ORDERED: SODIUM CHLORIDE 0.9% 1,000 ML IV STA (15:02)
[2021-04-09 15:34] LABS: Erythrocyte Sedimentation Rate 10 mm/hr (0-20)
--- NOTE | 2021-04-09 15:41 | P.HPIM ---
History of Present Illness H&P Date: 04/09/21 Chief Complaint: Double vision This is a 80-year-old female with past medical history noted below that presented to the emergency room sent by her business account leader for further evaluation of diplopia and concerns about possible third nerve palsy. Patient said that approximately a week ago she started having double vision that was initially intermittent and then became persistent. Patient denies any headache. No nausea or vomiting. Patient admitted to poor by mouth intake in the last few days. She is also complaining of some constipation but no abdominal pain. She otherwise denies any numbness or tingling anywhere. She was evaluated by her business account leader and sent to the ER for further evaluation. Patient said that she had similar symptoms in the past that he was not persistent. She is scheduled for a CT angiogram of the head and neck and MRI of the brain later today. Review of Systems Review of system: 14 points review of systems were obtained and were negative except to what were mentioned in the HPI. 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 Past Psychological History: No Psychological Hx Reported Smoking Status: Never smoker Past Alcohol Use History: None Reported Past Drug Use History: None Reported - Past Family History Mother Family Medical History: No Reported History Medications and Allergies Home Medications Medication Instructions Recorded Confirmed Type Ibuprofen [Advil] 400 tab PO Q4H PRN 02/22/14 04/09/21 History Irbesartan/Hydrochlorothiazide 1 tab PO BID 02/22/14 04/09/21 History [Avalide 150-12.5 mg Tablet] Levothyroxine Sodium [Levoxyl] 112 mcg PO SUMOWETHSA 02/22/14 04/09/21 History amLODIPine BESYLATE [Norvasc] 5 mg PO DAILY 02/22/14 04/09/21 History Anastrozole [Arimidex] 1 mg PO DAILY 09/22/18 04/09/21 History metFORMIN HCL [Glucophage] 500 mg PO DAILY 09/22/18 04/09/21 History Esomeprazole Magnesium [NexIUM] 40 mg PO DAILY 04/09/21 04/09/21 History Multivitamins, Thera [Multivitamin 1 tab PO DAILY 04/09/21 04/09/21 History (formulary)] Allergies Allergy/AdvReac Type Severity Reaction Status Date / Time adhesive tape Allergy Rash/Hives Verified 04/09/21 13:28 adhesive AdvReac ADHESIVE Verified 04/09/21 13:28 TAPES MAKE SKIN RED, ITCHY Physical Exam Vitals: Vital Signs Temp Pulse Resp BP Pulse Ox 04/09/21 13:29 98.6 F 99 16 146/65 100 Intake and Output 04/09/21 04/09/21 04/09/21 06:59 14:59 22:59 Other: Weight 63.503 kg General: The patient is awake and alert, in no distress Eye: There is ptosis of the right eye. there is normal conjunctiva bilaterally. Pupils are equal and reactive. No asymmetry. Neck: The neck is supple, there is no JVD. Cardiovascular: Normal S1-S2, no S3-S4, no murmurs. Respiratory: Lungs clear to auscultation bilaterally Gastrointestinal: Abdomen is soft, nontender Musculoskeletal: There is no pedal edema. Neurological:. Speech is normal. Skin: Skin is warm and dry Results CBC & Chem 7: 04/09/21 14:13 04/09/21 14:13 Labs: Abnormal Lab Results - Last 24 Hours (Table) 04/09/21 04/09/21 Range/Units 14:13 14:13 WBC 11.5 H (3.8-10.6) k/uL Hct 33.6 L (34.0-46.0) % MCV 78.1 L (80.0-100.0) fL Plt Count 456 H (150-450) k/uL Neutrophils # 8.6 H (1.3-7.7) k/uL Sodium 120 L (137-145) mmol/L Chloride 88 L (98-107) mmol/L Carbon Dioxide 21 L (22-30) mmol/L BUN 33 H (7-17) mg/dL Creatinine 1.09 H (0.52-1.04) mg/dL Glucose 144 H (74-99) mg/dL Assessment and Plan Assessment: This is a 80-year-old female sent by her business account leader for further evaluation of diplopia and weakness involving extraocular muscles. Patient was evaluated in the ER and will be admitted to the hospital for further management of her medical problems noted below. 1. 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 Case discussed with neurology by ER staff. Plan to obtain MRI of the brain. We'll continue to monitor closely. 2. Hypovolemic hyponatremia: Sodium on presentation 120. Continue IV fluid hydration with normal saline at 100 mL per hour.. Monitor sodium level every 6 hours. 3. Acute kidney injury, mild. We will continue IV fluid hydration. Probably secondary to poor oral intake 4. Chronic medical problems: Essential hypertension, hypothyroidism, type 2 diabetes 5. DVT prophylaxis with subcu Lovenox Today, I reviewed her medication list and lab work results. Resume home medications. Hold home dose of metformin and continue sliding scale insulin. Awaiting neurology and ophthalmology evaluation.
--- NOTE | 2021-04-09 15:56 | CT ---
EXAMINATION TYPE: CT brain wo con DATE OF EXAM: 04/09/2021 COMPARISON: None HISTORY: Visual disturbance and weakness. CT DLP: 1424.[address] of the brain was performed. The ventricles, basal cisterns and sulci overlying the cerebral convexities demonstrate mild enlargem ent. There is no evidence for intracranial hemorrhage or sulcal effacement. There is decreased attenuation about the periventricular white matter and deep white matter of both c erebral hemispheres, compatible with chronic small vessel ischemia. Differential diagnosis does inclu de demyelination. No mass effects are seen.No midline shift. Osseous calvarium is intact. If symptoms persist consider MRI. IMPRESSION: 1. Age related atrophic and chronic small vessel ischemic change without acute intracranial process s een at this time.
--- NOTE | 2021-04-09 16:04 | CT ---
EXAMINATION TYPE: CT angio head neck DATE OF EXAM: 04/09/2021 COMPARISON: None HISTORY: Visual disturbance and weakness. CT DLP: 1424.4 mGycm CONTRAST: Performed with IV Contrast, patient injected with 65 mL of Isovue 370. Combination Contrast CTA cervical carotids and [place] of [place] CTA cervical carotids with 3-D recons truction Contrast CTA of the cervical carotids was performed 3-D reconstruction imaging obtained at a separate workstation. Right carotid system: Mild plaque is seen of the right common carotid artery. There is mild plaque a lso noted at the carotid bulb and proximal ICA. No significant diameter reduction. ECA is patent. Right vertebral artery appears unremarkable. Left carotid system: Mild plaque is seen of the left common carotid artery. There is mild plaque als o noted at the carotid bulb and proximal ICA. No significant diameter reduction. ECA is patent. Lef t vertebral artery appears unremarkable. IMPRESSION: 1. No significant diameter reduction to account for the patient's symptoms. CTA [place] of [place] with 3-D reconstruction Contrast CTA of the [place] of [place] was performed 3-D reconstruction imaging obtained at a separate workstation. Vertebrobasilar system as well as intracranial portions of the internal carotid arteries and their ma tima tributaries are patent. I do not see evidence for sizable aneurysm or vascular malformation. Pl ease note MRI provides greater sensitivity and specificity. Visualized brain appears grossly unremar kable. IMPRESSION: 1. No significant abnormality.
[2021-04-09 17:10] LABS: Glucose,Whole Blood 142 mg/dL (75-99)
[2021-04-09] MEDS: INSULIN ASPART (NovoLOG) 100 UNIT/ML VIAL SQ SCH ×2 (17:39→20:32)
--- NOTE | 2021-04-09 17:41 | P.CNNES ---
History of Present Illness Consult date: 04/09/21 Requesting physician: Rosendo Crespo Reason for Consult: diplopa and 3rd nerve palsy History of Present Illness: This is an 80-year-old woman with medical history of previous episodes of diplopia (X2), diabetes mellitus, hypertension, document myocardial infarction (which the patient does not recall) who was sent by her medical office assistant for her complaint of double vision. He stated that she's been having diplopia and seeing 1 thing on top another and she sees on both eyes but when she covers either eye it goes away and that has been going on for the last 1 week. She denies any headache. Denies any focal weakness, numbness, difficulty getting her words out or swallowing. She denies of any drooping of the eyes and per the patient's son he has not noticed any drooping of the eyes. Per the patient's she had an episode like this and the last episode was in 2016 and she had prism of the eye which resolved the issue. She has history of cataract surgery of both eyes and that was at least 6-9 years ago. Per the ED team, the medical office assistant and is requesting MRI of the brain. He denies history of stroke or TIAs. She stated that the she had diabetes for years but that cannot tell me exactly for how long. She was told that she has history of hypertension but she stated that every time her blood pressure is checked by her primary team it's normal. Patient will medication consist ofIrbesartan/HCTZ, Arimidex, metformin, amlodipine, ibuprofen, Synthroid, multivitamin, Nexium. Patient is a not on any aspirin or at antiplatelets. She is on any statins. Some of the workup in the hospital consisted of: Initial vital signs: Blood pressure of 146/65, heart rate of 99, respiratory of 16, temperature of 98.6 Fahrenheit oral and pulse ox of 100% room air. CT of the head is reported as age-related atrophy And chronic small vessel ischemic change without acute intracranial process seen at this time. CT angiography of the head and neck is reported as no significant abnormality. Initial white blood cell is 11.5 and the 8.6 is the neutrophils is slightly elevated. The ESR is 10 which is normal. The CRP is 0.8 which is also considered normal. The sodium is 120 which is moderately low. Upon reviewing the patient's sodium level she had a sodium as low as 123 on May 2020 but her sodium usually once the high 120s to low 130s. area and the BUN is 1.09 to slightly elevated. The serum glucose is 144 and the calcium is 9.9, magnesium is 1.9 and nothing is concerning. Review of Systems Review of system: The 12 point system was reviewed and apparent positive and negative per HPI. 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 Past Psychological History: No Psychological Hx Reported Smoking Status: Never smoker Past Alcohol Use History: None Reported Past Drug Use History: None Reported - Past Family History Mother Family Medical History: No Reported History Medications and Allergies Home Medications Medication Instructions Recorded Confirmed Type Ibuprofen [Advil] 400 tab PO Q4H PRN 02/22/14 04/09/21 History Irbesartan/Hydrochlorothiazide 1 tab PO BID 02/22/14 04/09/21 History [Avalide 150-12.5 mg Tablet] Levothyroxine Sodium [Levoxyl] 112 mcg PO SUMOWETHSA 02/22/14 04/09/21 History amLODIPine BESYLATE [Norvasc] 5 mg PO DAILY 02/22/14 04/09/21 History Anastrozole [Arimidex] 1 mg PO DAILY 09/22/18 04/09/21 History metFORMIN HCL [Glucophage] 500 mg PO DAILY 09/22/18 04/09/21 History Esomeprazole Magnesium [NexIUM] 40 mg PO DAILY 04/09/21 04/09/21 History Multivitamins, Thera [Multivitamin 1 tab PO DAILY 04/09/21 04/09/21 History (formulary)] Allergies Allergy/AdvReac Type Severity Reaction Status Date / Time adhesive tape Allergy Rash/Hives Verified 04/09/21 13:28 adhesive AdvReac ADHESIVE Verified 04/09/21 13:28 TAPES MAKE SKIN RED, ITCHY Physical Examination - Vital Signs Vital Signs: Vital Signs Temp Pulse Resp BP Pulse Ox 04/09/21 13:29 98.6 F 99 16 146/65 100 Intake and Output 04/09/21 04/09/21 04/09/21 06:59 14:59 22:59 Other: Weight 63.503 kg GENERAL: The patient is lying in bed and is not in acute distress. CHEST: The heart rate is regular rate rhythm. No murmurs to auscultation. No carotid bruit bilaterally. LUNG: Clear to auscultation bilaterally no wheezing noted throughout. Not labored breathing. ABDOMEN/GI: Bowel sounds present in all 4 quadrants. No tenderness to palpation throughout. NEUROLOGICAL: Higher mental function: The patient is awake, alert, oriented to self, place and time. Patient is following commands. No aphasia and no neglect. Cranial nerves: The pupils are round, equal and reactive to light. The patient has ptosis of the right eye. Visual coronado are full to confrontation throughout and did not had diplopia but later noticed upon looking at me striaght, she saw two of me and and were up and down. Extraocular movement is there is restriction in movement of the right eye to nasal region and upwardard. Facial sensation is normal to touch throughout. The facial strength is normal throughout. Hearing is moderately decreased bilaterally to hand rub. Tongue is midline and moved [id number] without any difficulty. No dysarthria is noted. Shoulder shrug is normal bilaterally. Motor: Gait is deferred. The strength is 5 over 5 throughout. Normal tone and bulk. Cerebellum: Normal finger to nose bilaterally. Sensation: Sensation is normal to touch throughout. Reflexes (right/left): 2+ throughout except lowers are 1+ throughout. Plantars are downgoing bilaterally. NIH stroke scale: 0. 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 Likely due to diabetic peripheral neuropathy. Rule out stroke. Does not have headaches, ESR and CRP are normal, so therefore does not seem giant cell arteritis. * She stated had two similar episode like this twice in past. Last in 2016 and correct with prism. * Diabetes mellitus type 2 * Acute on chronic hyponatremia ---currently is 12 (in past was as low as 123 and ranges up to low 130's (likely due to medication effect) * Hypertension * History of myocardial infarction (that is documented but she does not recall) Plan: * CT of the head is reported as age-related atrophy And chronic small vessel ischemic change without acute intracranial process seen at this time. * CT angiography of the head and neck is reported as no significant abnormality. * The ESR is 10 which is normal. The CRP is 0.8 which is also considered normal. * MRI of the brain is ordered and is pending. * I placed the patient on prophylactic aspirin 81 mg and Lipitor 40 mg daily at bedtime. If the patient does not have a stroke then we'll discontinue them from a neurological standpoint. * I ordered lipid panel, TSH, hemoglobin A1c. Will hold off on 2D echo until after MRI (to see if truly stroke or not). * Placed the patient on every 4 hours neuro checks. * Placed the patient on continuous cardiac monitoring * We'll defer the rest of the medical management to the primary team. The plan is discussed with the patient's son (Kip) who is at bedside and her nurse. Thank you for the consultation Chuck Prajapati M.D. Neuro-hospitalist Time with Patient: Greater than 30
[2021-04-09] MEDS: ASPIRIN 81 MG PO SCH (17:57)
[2021-04-09 20:24] LABS: Glucose,Whole Blood 123 mg/dL (75-99)
[2021-04-09] MEDS ORDERED: ATORVASTATIN 40 MG TAB PO SCH (21:00)
[2021-04-10 03:42] LABS: Hemoglobin A1C 6.1 % (4.0-6.0)
[2021-04-10] MEDS ORDERED: LEVOTHYROXINE 112 MCG TAB PO SCH (06:30)
[2021-04-10] MEDS ORDERED: PANTOPRAZOLE 40 MG TABLET PO SCH (07:30)
[2021-04-10 07:38] LABS: Glucose,Whole Blood 121 mg/dL (75-99)
[2021-04-10 07:48] LABS: Chol/HDL Ratio 3.71; LDL Cholesterol,Calculated 98.2 mg/dL (0.0-131.0); VLDL Calculation 15.8 mg/dL (5.00-40.00)
[2021-04-10 07:50] VITALS: BP 146/72; PULSE 69; RESP 17; TEMP 98.2
[2021-04-10] MEDS: INSULIN ASPART (NovoLOG) 100 UNIT/ML VIAL SQ SCH ×2 (08:02→11:59)
[2021-04-10 08:04] LABS: Anion Gap 13.6 mmol/L (4.00-12.00); BUN/Creat Ratio 28.89 Ratio (12.00-20.00); Carbon Dioxide 21.4 mmol/L (21.6-31.8); Non-African American GFR(CKD) 60.4 (60.0-200.0); Potassium 3.2 mmol/L (3.5-5.5)
[2021-04-10] MEDS: ASPIRIN 81 MG PO SCH (08:33)
[2021-04-10] MEDS ORDERED: amLODIPine 5 MG TAB PO SCH (09:00)
[2021-04-10] MEDS ORDERED: ANASTROZOLE 1 MG TAB PO SCH (09:00)
[2021-04-10 09:18] LABS: Basophils % (A) 1.1 %; Eosinophils # (A) 0.28 X 10*3/uL (0.04-0.35); Eosinophils % (A) 3.1 %; HCT 32.1 % (37.2-46.3); HGB 10.4 g/dL (12.0-15.0); Lymphocytes # (A) 2.58 X 10*3/uL (0.90-5.00); MCH 26.5 pg (27.0-32.0); MCHC 32.4 g/dL (32.0-37.0); MCV 81.7 fL (80.0-97.0); Mean Platelet Volume 9.4 fL (9.5-12.2); Monocytes # (A) 0.84 X 10*3/uL (0.20-1.00); Monocytes % (A) 9.4 %; Neutrophils # (A) 5.05 X 10*3/uL (1.80-7.70); Neutrophils % (A) 56.8 %; Platelet Count 420 X 10*3/uL (140-440); RBC 3.93 X 10*6/uL (4.10-5.20); RDW 13.8 % (11.5-14.5)
--- NOTE | 2021-04-10 11:50 | MR ---
MR brain without contrast HISTORY: 3rd nerve palsy Multiplanar multisequence imaging through the brain, correlation to CT brain 04/09/2021, MR brain 2015 Cortical atrophy is again noted. There is no hemorrhage or hydrocephalus. No restricted diffusion to suggest subacute ischemia. The corpus callosum, pituitary, cervical medullary junction, cerebellopont ine angles are within normal limits. Confluent and scattered hyperintensities on inversion recovery T 2-weighted sequences present in the subcortical, periventricular white matter similar to prior exam. There are expected vascular flow voids. Mucus retention cyst is present within the left maxillary sin us measuring approximately 2.1 cm. Inflammatory changes present within the ethmoid air cells. IMPRESSION: No acute brain abnormality is evident. Age-related changes of atrophy and probable chroni c small vessel ischemia.
[2021-04-10 11:51] LABS: Glucose,Whole Blood 123 mg/dL (75-99)
[2021-04-10] MEDS ORDERED: MULTIVITAMINS, THERA 1 EACH TAB PO SCH (12:00)
--- NOTE | 2021-04-10 13:00 | ECHOF ---
Referral Reason:Neuro symptoms MEASUREMENTS -------- HEIGHT: 154.9 cm WEIGHT: 63.5 kg BP: 146/72 RVIDd: 3.8 cm (< 3.3) IVSd: 1.3 cm (0.6 - 1.1) LVIDd: 3.5 cm (3.9 - 5.3) LVPWd: 1.3 cm (0.6 - 1.1) IVSs: 1.8 cm LVIDs: 2.4 cm LVPWs: 1.2 cm LA Diam: 3.4 cm (2.7 - 3.8) LAESV Index (A-L): 23.44 ml/m Ao Diam: 3.1 cm (2.0 - 3.7) AV Cusp: 2.1 cm (1.5 - 2.6) MV E Naun: 0.88 m/s MV DecT: 377 ms MV A Naun: 1.51 m/s MV E/A Ratio: 0.58 RAP: 5.00 mmHg RVSP: 40.40 mmHg FINDINGS -------- Sinus rhythm. This was a technically adequate study. Suboptimal image quality - poor subcostal views. The left ventricular size is normal. There is mild concentric left ventricular hypertrophy. Overa ll left ventricular systolic function is normal with, an EF between 60 - 65 %. The right ventricle is mild to moderately enlarged. Normal LA size by volume 22+/-6 ml/m2. The right atrium is normal in size. Interatrial and interventricular septum intact. Aortic valve is trileaflet and is mildly thickened. Trace to mild aortic regurgitation. Mild mitral annular calcification present. Mild tricuspid regurgitation present. There is mild pulmonary hypertension. The right ventricular systolic pressure, as measured by Doppler, is 40.40mmHg. The pulmonic valve was not well visualized. The aortic root size is normal. IVC Not well visulized. There is no pericardial effusion. CONCLUSIONS -------- 1. The left ventricular size is normal. 2. There is mild concentric left ventricular hypertrophy. 3. Overall left ventricular systolic function is normal with, an EF between 60 - 65 %. 4. The right ventricle is mild to moderately enlarged. 5. Aortic valve is trileaflet and is mildly thickened. 6. Trace to mild aortic regurgitation. 7. Mild mitral annular calcification present. 8. Mild tricuspid regurgitation present. 9. There is mild pulmonary hypertension. 10. The right ventricular systolic pressure, as measured by Doppler, is 40.40mmHg. 11. There is no pericardial effusion. SENIOR QUALITY CONTROL TECHNICIAN: Enedina Kurtz RDCS
[2021-04-10] MEDS ORDERED: POTASSIUM CHLORIDE ER 20 MEQ TAB.ER PO STA (13:33)
--- NOTE | 2021-04-10 13:36 | P.DS ---
Providers Date of admission: 04/09/21 14:49 Expected date of discharge: 04/10/21 Attending physician: Tera Rogers Consults: 04/09/21 13:57 Consult Physician Routine Consulting Provider: Joaquin Medina Consult Reason/Comments: diplopia Do you want consulting provider notified?: Yes Consult Physician Routine Consulting Provider: Chuck Prajapati Consult Reason/Comments: 3rd nerve palsy Do you want consulting provider notified?: Already Contacted Primary care physician: Terra Tenorio MD Hospital Course: This is a 80-year-old female with past medical history noted below presented to the emergency room sent by her disability insurance hearing officer with concerns about third nerve palsy. Patient was evaluated in the ER and placed on observation. She underwent extensive workup including computed tomography scan of the head, CT angiogram of the head and neck, and MRI of the brain. All imaging was essentially normal. Echocardiogram showed preserved ejection fraction with no intracardiac source of stroke. Patient was seen and evaluated by ophthalmology and neurology. She was advised by her disability insurance hearing officer to wear eye patch at the time when she has diplopia. She was cleared for discharge home. She will be started on low-dose Lipitor. Of note, patient was noted to be in mild acute kidney injury and hypovolemic hyponatremia on presentation. That improved with IV fluid hydration. Her home dose of hydrochlorothiazide will be discontinued. Potassium will be replaced prior to discharge. Patient will follow-up with her PCP in the office as directed. For further details about this hospitalization please refer to the electronic chart. Patient Condition at Discharge: Stable Plan - Discharge Summary Discharge Rx Participant: No New Discharge Prescriptions: New Atorvastatin Calcium [Lipitor] 10 mg PO HS #30 tab Lisinopril [Prinivil] 10 mg PO DAILY #30 tab Continue Levothyroxine Sodium [Levoxyl] 112 mcg PO SUMOWETHSA amLODIPine BESYLATE [Norvasc] 5 mg PO DAILY metFORMIN HCL [Glucophage] 500 mg PO DAILY Anastrozole [Arimidex] 1 mg PO DAILY Multivitamins, Thera [Multivitamin (formulary)] 1 tab PO DAILY Esomeprazole Magnesium [NexIUM] 40 mg PO DAILY Discontinued Irbesartan/Hydrochlorothiazide [Avalide 150-12.5 mg Tablet] 1 tab PO BID Ibuprofen [Advil] 400 tab PO Q4H PRN PRN Reason: Pain Discharge Medication List Levothyroxine Sodium [Levoxyl] 112 mcg PO SUMOWETHSA 02/22/14 [History] amLODIPine BESYLATE [Norvasc] 5 mg PO DAILY 02/22/14 [History] Anastrozole [Arimidex] 1 mg PO DAILY 09/22/18 [History] metFORMIN HCL [Glucophage] 500 mg PO DAILY 09/22/18 [History] Esomeprazole Magnesium [NexIUM] 40 mg PO DAILY 04/09/21 [History] Multivitamins, Thera [Multivitamin (formulary)] 1 tab PO DAILY 04/09/21 [History] Atorvastatin Calcium [Lipitor] 10 mg PO HS #30 tab 04/10/21 [Rx] Lisinopril [Prinivil] 10 mg PO DAILY #30 tab 04/10/21 [Rx] Follow up Appointment(s)/Referral(s): Terra Tenorio MD [Primary Care Provider] - 1-2 days Hany Wilhelm MD [STAFF PHYSICIAN] - 2 Weeks Discharge Disposition: HOME SELF-CARE
--- NOTE | 2021-04-10 14:06 | CONS ---
CONSULTATION HISTORY: This is an 80-year-old white female with a history of insulin-dependent diabetes and hypertension and previous myocardial infarction. The patient states that she has had double vision for the last week. The patient states that her double vision is constant and she is not able to find any eye position where it is relieved. The patient states that relief can only be obtained when closing one eye or the other. There is no history of headache. EXAMINATION: Visual acuity measured 20/40 bilaterally with correction. The pupils were equal and reactive to light. There was no efferent defect. Extraocular movements demonstrated normal movements to the left eye. However, the right eye exhibited decreased ability for superior nasal and inferior gaze. Lateral gaze in the right eye was intact. On penlight exam, there was 4 mm of ptosis present in the right eye with only minimal ptosis in the left. Both conjunctivae were quiet. The corneas were clear. The anterior chambers were quiet and the remainder of the ophthalmic exam was otherwise unremarkable. IMPRESSION: Third cranial nerve palsy. These are typically due to micro infarcts and can occasionally be caused by aneurysm if the pupil is increased in size in the affected eye. I find no evidence of this in the right eye and therefore the likelihood is minimal. The patient is currently undergoing a workup for a stroke and assuming these show minimal exams, discharge and followup on an outpatient basis is indicated. The patient's pupil should be followed for the first week after this occurs. However, since 1 week is already passed, it is not likely that an aneurysm is the source for this. Spontaneous resolution often occurs within the first 6 months and if no relief has occurred after 6 months, surgical realignment of the extraocular muscles would be contemplated. I would be happy to see this patient upon discharge from the hospital. MMODL / IJN: [id number] /
[2021-04-10 14:14] LABS: Anion Gap 13.4 mmol/L (4.00-12.00); BUN/Creat Ratio 24.44 Ratio (12.00-20.00); Carbon Dioxide 19.6 mmol/L (21.6-31.8); Magnesium 1.8 mg/dL (1.5-2.4); Non-African American GFR(CKD) 60.4 (60.0-200.0); Potassium 3.7 mmol/L (3.5-5.5)
--- NOTE | 2021-04-10 19:10 | P.PN ---
Subjective Progress Note Date: 04/10/21 The patient seen at bedside and she feels about the same today compared to yesterday. Denies of any new neurological deficits. Objective - Vital Signs Vital signs: Vital Signs Temp 98.2 F 04/10/21 07:00 Pulse 69 04/10/21 12:13 Resp 17 04/10/21 12:13 BP 146/72 04/10/21 07:00 Pulse Ox 99 04/10/21 07:00 Intake & Output 04/10/21 04/10/21 04/11/21 06:59 18:59 06:59 Intake Total 240 Balance 240 Intake: Oral 240 Other: Voiding Method Toilet Toilet # Voids 3 1 # Bowel Movements 2 - Exam GENERAL: The patient is lying in bed and is not in acute distress. NEUROLOGICAL: Higher mental function: The patient is awake, alert, oriented to self, place and time. Patient is following commands. No aphasia and no neglect. Cranial nerves: The pupils are round, equal and reactive to light. The patient has ptosis of the right eye. Visual coronado are full to confrontation throughout and did not had diplopia but later noticed upon looking at me striaght, she saw two of me and and were up and down. Extraocular movement is there is res triction in movement of the right eye to nasal region and upwardard. Facial sensation is normal to touch throughout. The facial strength is normal throughout. Hearing is moderately decreased bilaterally to hand rub. Tongue is midline and moved [id number] without any difficulty. No dysarthria is noted. Shoulder shrug is normal bilaterally. Motor: Gait is deferred. The strength is 5 over 5 throughout. Normal tone and bulk. Cerebellum: Normal finger to nose bilaterally. Sensation: Sensation is normal to touch throughout. Reflexes (right/left): 2+ throughout except lowers are 1+ throughout. Plantars are downgoing bilaterally. - Labs CBC & Chem 7: 04/10/21 04:37 04/10/21 04:37 Labs: Abnormal Lab Results - Last 24 Hours (Table) 04/09/21 04/09/21 04/09/21 Range/Units 20:23 21:54 21:54 RBC (4.10-5.20) X 10*6/uL Hgb (12.0-15.0) g/dL Hct (37.2-46.3) % MCH (27.0-32.0) pg MPV (9.5-12.2) fL Immature Gran # (0.00-0.04) X 10*3/uL Sodium 127 L (135-145) mmol/L Potassium 3.2 L (3.5-5.5) mmol/L Chloride 92 L (96-109) mmol/L Carbon Dioxide 21.4 L (21.6-31.8) mmol/L Anion Gap 13.60 H (4.00-12.00) mmol/L BUN/Creatinine Ratio 28.89 H (12.00-20.00) Ratio Glucose 138 H (70-110) mg/dL POC Glucose (mg/dL) 123 H (75-99) mg/dL Hemoglobin A1c 6.1 H (4.0-6.0) % TSH (0.350-5.500) uIU/mL 04/09/21 04/10/21 04/10/21 Range/Units 21:54 04:37 04:37 RBC 3.93 L (4.10-5.20) X 10*6/uL Hgb 10.4 L (12.0-15.0) g/dL Hct 32.1 L (37.2-46.3) % MCH 26.5 L (27.0-32.0) pg MPV 9.4 L (9.5-12.2) fL Immature Gran # 0.05 H (0.00-0.04) X 10*3/uL Sodium 126 L (135-145) mmol/L Potassium (3.5-5.5) mmol/L Chloride 93 L (96-109) mmol/L Carbon Dioxide 19.6 L (21.6-31.8) mmol/L Anion Gap 13.40 H (4.00-12.00) mmol/L BUN/Creatinine Ratio 24.44 H (12.00-20.00) Ratio Glucose 111 H (70-110) mg/dL POC Glucose (mg/dL) (75-99) mg/dL Hemoglobin A1c (4.0-6.0) % TSH 0.240 L (0.350-5.500) uIU/mL 04/10/21 04/10/21 Range/Units 07:36 11:50 RBC (4.10-5.20) X 10*6/uL Hgb (12.0-15.0) g/dL Hct (37.2-46.3) % MCH (27.0-32.0) pg MPV (9.5-12.2) fL Immature Gran # (0.00-0.04) X 10*3/uL Sodium (135-145) mmol/L Potassium (3.5-5.5) mmol/L Chloride (96-109) mmol/L Carbon Dioxide (21.6-31.8) mmol/L Anion Gap (4.00-12.00) mmol/L BUN/Creatinine Ratio (12.00-20.00) Ratio Glucose (70-110) mg/dL POC Glucose (mg/dL) 121 H 123 H (75-99) mg/dL Hemoglobin A1c (4.0-6.0) % TSH (0.350-5.500) uIU/mL Assessment and Plan Assessment: * Right Third nerve palsy for the past one week. Likely due to diabetic peripheral neuropathy (Possibly due to long standing diabetes (even tough HbA1c 6.1 even tough I expected it to be higher). Not stroke/TIA. Does not have headaches, ESR and CRP are normal, so therefore does not seem giant cell arteritis. * She stated had two similar episode like this twice in past. Last in 2016 and correct with prism. * Diabetes mellitus type 2 * Acute on chronic hyponatremia ---currently is 12 (in past was as low as 123 and ranges up to low 130's (likely due to medication effect) * Hypertension * History of myocardial infarction (that is documented but she does not recall) Plan: * CT of the head is reported as age-related atrophy And chronic small vessel ischemic change without acute intracranial process seen at this time. * CT angiography of the head and neck is reported as no significant abnormality. * The ESR is 10 which is normal. The CRP is 0.8 which is also considered normal. * MRI the brain is reported as no acute brain abnormalities evident. Age- related changes of atrophy and probable chronic small vessel ischemia. * 2-D echo was reported as mild concentric 1112 atrophy. Ejection fraction of 60-65%. Normal left atrial size by volume. * Hemoglobin A1c is 6.1 which is not significantly elevated as I expected. * Lipid panel: Triglyceride of 79, cholesterol 156, LDL of 98.2, HDL 42. * TSH is 0.240 which is low but the free T4 is 1.70 which is normal. * The patient is on aspirin 81 mg and Lipitor 40 mg daily at bedtime for stroke prophylaxis. I notified the primary team she does not have stroke/TIA and does not need to be on them since from neurological stand point. * Placed the patient on every 4 hours neuro checks. * Placed the patient on continuous cardiac monitoring * We'll defer the rest of the medical management to the primary team. * The patient needs to follow-up with a neurologist and an her Ophthamologist within 1-2 weeks as outpatient. The plan is discussed with the patient's son (Kip) who is at bedside and her nurse. There is no further work-up. Chuck Prajapati M.D. Neuro-hospitalist
== END 2021-04-10 15:32 | disposition home or self-care (01) ==
LOC: EC 13:22 → 3SCARD 14:49 → 6NMEDSUR 14:53
PROVIDERS: ADMIT Internal Medicine; ATTEND Internal Medicine
DX: H53.2 Diplopia (principal); E86.1 Hypovolemia; E87.1 Hypo-osmolality and hyponatremia; N17.9 Acute kidney failure, unspecified; I25.2 Old myocardial infarction; E03.9 Hypothyroidism, unspecified; E11.42 Type 2 diabetes mellitus with diabetic polyneuropathy; E87.8 Other disorders of electrolyte and fluid balance, not elsewhere classified; I10 Essential (primary) hypertension; K59.00 Constipation, unspecified; H91.90 Unspecified hearing loss, unspecified ear; L30.9 Dermatitis, unspecified; M19.90 Unspecified osteoarthritis, unspecified site; Z20.822 Contact with and (suspected) exposure to COVID-19; Z79.899 Other long term (current) drug therapy; Z79.890 Hormone replacement therapy; Z79.811 Long term (current) use of aromatase inhibitors; Z79.84 Long term (current) use of oral hypoglycemic drugs; Z91.048 Other nonmedicinal substance allergy status; Z98.42 Cataract extraction status, left eye; Z98.41 Cataract extraction status, right eye
CPT/HCPCS: 96361 ×2; 96360; 99285; 36415; 93306; 84439; 80061; 80048 ×2; 85652; 84443; 83735 ×2; 85025 ×2; 85610; 85730; 86140; 83036; 87635; 70496; 70450; 70498; 70551; G0378 ×2; S0170; Q9967

== ENCOUNTER → 2021-07-11 | Outpatient (CLI) | payer MEDICARE, BC ==
--- NOTE | 2021-07-11 11:37 | BD ---
EXAMINATION TYPE: Axial Bone Density DATE OF EXAM: 07/11/2021 COMPARISON: 05.11.2018 CLINICAL HISTORY: 80 YR OLD FEMALE IN A WHEELCHAIR, ICD-10 CODE: Z79.890 POST MENOPAUSAL Height: 58 Weight: 152 FRAX RISK QUESTIONS: Family History (Parent hip fracture): YES Secondary Osteoporosis: YES 1. Type 1 Diabetes: YES, SOMETIMES RISK FACTORS HISTORY OF: Family History of Osteoporosis: YES, MOTHERS SISTER, WITH HIP FX Postmenopausal woman: YES, AT AGE 55 Lost more than 2 inches in height since high school: YES Frequent falls: PT IN W/C Poor Health: ELDERLY, FRAIL, IN W/C Hyperparathyroidism: NO Adrenal Insufficiency: NO MEDICATIONS: Thyroid Medications: YES, SYNTHROID FOR 52 YRS Additional Medications: CHEMO 2 TYPES, FOR BREAST CANCER, NORVASC, VIT D, CALCIUM, AVALIDE, METFORMI N, ANASTRAZOLE, BP MEDS, REFLUX MEDS, STATIN FOR CHOLESTEROL, Additional History: DOUBLE VISION, VERTIGO, BREAST CANCER, DIABETIC, HYPERTENSION, REFLUX, CHOLESTER OL, ARTHRITIS, RT TKR EXAM MEASUREMENTS: Bone mineral densitometry was performed using the Tag[employer] System. Bone mineral density as measured about the Lumbar spine is: ----- L1-L4(G/cm2): 0.826 T Score Values are as follows: ----- L1: -3.0 ----- L2: -4.2 ----- L3: -3.5 ----- L4: -1.9 ----- L1-L4: -3.0 Bone mineral density has: Decreased -19.3% since study of: 05.11.2018 Bone mineral density about the R hip (g/cm2): 0.671 Bone mineral density about the L hip (g/cm2): 0.665 T Score values are as follows: -----R Neck: -2.8 -----L Neck: -2.9 -----R Total: -2.7 -----L Total: -2.7 Bone mineral density has: Decreased -12.3% since study of: 05.11.2018 FRAXs: THERE IS A 4.6% CHANCE FOR A MAJOR OSTEOPOROTIC FX AND A 32.9% FOR HIP......PROBABILITY FO R FX IN 10 YRS TIME IMPRESSION: Osteoporosis (T Score less than -2.5). There is increased fracture risk and therapy is usually indicated based on age. Re-Screen 1-2 years. NOTE: T-SCORE=SD OF THE YOUNG ADULT MEAN.
== END | disposition home or self-care (01) ==
LOC: RADBDWWP 10:43
PROVIDERS: ATTEND Internal Medicine Hematology & Oncology
DX: M81.0 Age-related osteoporosis without current pathological fracture (principal); E11.9 Type 2 diabetes mellitus without complications; Z79.890 Hormone replacement therapy
CPT/HCPCS: 77080

== ENCOUNTER → 2021-08-27 | Outpatient (CLI) | payer MEDICARE, BC ==
--- NOTE | 2021-08-27 14:04 | MM ---
Reason for exam: additional evaluation requested from prior study. Last mammogram was performed 1 year and 1 month ago. History: Patient is postmenopausal and has history of breast cancer at age 73. Family history of breast cancer in maternal cousin and breast cancer in maternal aunt at age 75. Malignant US RT VAD breast biopsy of the right breast, February 10, 2014. Mastectomy of the right breast, 2013. Benign right mammotome panel of the right breast, September 03, 2005. Benign excisional biopsy of the right breast, July 23, 2001. Benign stereotactic core biopsy of the right breast, July 05, 2001. Core biopsy of the right breast. 2 excisional biopsies of the right breast. Physical Findings: Nurse did not find any significant physical abnormalities on exam. MG 3D Diag Mammo W/Cad LT CC and MLO view(s) were taken of the left breast. Prior study comparison: July 19, 2020, left breast MG 3d diag mammo w/cad LT. June 08, 2019, left breast MG 3d diag mammo w/cad LT. There are scattered fibroglandular densities. There are benign appearing round vascular dystrophic calcifications in the left breast. There is no discrete abnormality. These results were verbally communicated with the patient and result sheet given to the patient on 08/27/21. ASSESSMENT: Benign, BI-RAD 2 RECOMMENDATION: Follow-up diagnostic mammogram of the left breast in 1 year.
== END | disposition home or self-care (01) ==
LOC: RADMAMWWP 12:53
PROVIDERS: ATTEND Internal Medicine Hematology & Oncology
DX: R92.1 Mammographic calcification found on diagnostic imaging of breast (principal); R92.8 Other abnormal and inconclusive findings on diagnostic imaging of breast; Z85.3 Personal history of malignant neoplasm of breast; Z80.3 Family history of malignant neoplasm of breast; Z78.0 Asymptomatic menopausal state
CPT/HCPCS: 77065; G0279; 77061

== ENCOUNTER → 2022-08-29 | Outpatient (CLI) | payer MEDICARE ==
--- NOTE | 2022-08-29 11:26 | MM ---
Reason for Exam: Additional evaluation requested from prior study. Last screening mammogram was performed 12 month(s) ago. Patient History: Menarche at age 10. First Full-Term at age 21. Postmenopausal. Breast cancer, right, age 73. Core Biopsy on the Right side. Excisional Biopsy on the Right side. Excisional Biopsy on the Right side. 2013, Mastectomy on the Right side. 02/10/2014, Malignant Core Biopsy on the right side. 09/03/2005, Benign Core Biopsy on the right side. 07/23/2001, Benign Excisional Biopsy on the right side. 07/05/2001, Benign Stereotactic Core Biopsy on the right side. Maternal cousin had breast cancer. Maternal aunt had breast cancer, age 75. Prior Study Comparison: 07/23/2001 Screening Mammogram, Unknown. 06/08/2019 Left Diagnostic Mammogram, [facility]. 07/19/2020 Left Diagnostic Mammogram, [facility]. 08/27/2021 Left Diagnostic Mammogram, [facility]. Tissue Density: Left: The breast tissue is heterogeneously dense. This may lower the sensitivity of mammography. Findings: Analyzed By CAD. Benign punctate calcifications. No suspicious calcifications seen. No evidence for mass or distortion. Overall Assessment: Benign, BI-RAD 2 Management: Diagnostic Mammogram of the left breast in 1 year. A clinical breast exam by your physician is recommended on an annual basis and results should be correlated with mammographic findings. This exam should not preclude additional follow-up of suspicious palpable abnormalities. Results were given to the patient verbally at the time of exam. Electronically signed and approved by: Marcus Rivas M.D. Radiologis
== END | disposition home or self-care (01) ==
LOC: RADMAMWWP 10:53
PROVIDERS: ATTEND Internal Medicine Hematology & Oncology
DX: Z85.3 Personal history of malignant neoplasm of breast (principal); Z90.11 Acquired absence of right breast and nipple; Z78.0 Asymptomatic menopausal state; Z80.3 Family history of malignant neoplasm of breast
CPT/HCPCS: 77065; G0279; 77061

== ENCOUNTER → 2023-08-31 | Outpatient (CLI) | payer MEDICARE ==
--- NOTE | 2023-08-31 11:27 | MM ---
Reason for Exam: Hx of breast cancer, mastectomy. Last screening mammogram was performed 12 month(s) ago. Patient History: Menarche at age 10. First Full-Term at age 21. Postmenopausal. Breast cancer, right, age 73. Previous chemotherapy. Core Biopsy on the Right side. Excisional Biopsy on the Right side. Excisional Biopsy on the Right side. 2013, Mastectomy on the Right side. 02/10/2014, Malignant Core Biopsy on the right side. 09/03/2005, Benign Core Biopsy on the right side. 07/23/2001, Benign Excisional Biopsy on the right side. 07/05/2001, Benign Stereotactic Core Biopsy on the right side. Maternal cousin had breast cancer. Maternal aunt had breast cancer, age 75. Prior Study Comparison: 07/19/2020 Left Diagnostic Mammogram, [facility]. 08/27/2021 Left Diagnostic Mammogram, [facility]. 08/29/2022 Left MG 3D diag mammo w/cad , [facility]. Tissue Density: Left: The breast tissue is heterogeneously dense. This may lower the sensitivity of mammography. Findings: Analyzed By CAD. Stable skeletal left breast. Benign calcifications are unchanged. No evidence for mass or distortion. Overall Assessment: Benign, BI-RAD 2 Management: Screening Mammogram of the left breast in 1 year. . Results were given to the patient verbally at the time of exam. Patient should continue monthly self-breast exams. A clinical breast exam by your physician is recommended on an annual basis. This exam should not preclude additional follow-up of suspicious palpable abnormalities. Note on Nola scores and lifetime risk: 1. A Nola score greater than 3% is considered moderate risk. If this is the case, consider specialist referral to assess eligibility for a risk reducing agent. 2. If overall lifetime risk for the development of breast cancer is 20% or higher, the patient may qualify for future screening with alternating mammogram and breast MRI. Electronically signed and approved by: Marcus Rivas M.D. Radiologis
== END | disposition home or self-care (01) ==
LOC: RADMAMWWP 10:57
PROVIDERS: ATTEND Internal Medicine Hematology & Oncology
DX: R92.332 Mammographic heterogeneous density, left breast (principal); C50.412 Malignant neoplasm of upper-outer quadrant of left female breast; Z78.0 Asymptomatic menopausal state; Z80.3 Family history of malignant neoplasm of breast
CPT/HCPCS: 77065; G0279; 77061

== ENCOUNTER → 2023-12-31 | Outpatient (CLI) | payer MEDICARE ==
--- NOTE | 2023-12-31 15:28 | US ---
EXAMINATION TYPE: US venous doppler duplex LE LT DATE OF EXAM: 12/31/2023 3:06 PM COMPARISON: US 2013 CLINICAL INDICATION: Female, 83 years old with history of LLE M79.89 OTHER SPECIFIED SOFT TISSUE DISO RDERS; Left leg swelling SIDE PERFORMED: Left TECHNIQUE: The lower extremity deep venous system is examined utilizing real time linear array sonog ritika with graded compression, doppler sonography and color-flow sonography. VESSELS IMAGED: Common Femoral Vein Deep Femoral Vein Greater Saphenous Vein * Femoral Vein Popliteal Vein Small Saphenous Vein * Proximal Calf Veins (* superficial vessels) Left Leg: Appears negative for DVT IMPRESSION: No evidence for DVT within the left lower extremity imaged from the groin to the upper calf.
== END | disposition home or self-care (01) ==
LOC: RADUSWWP 14:47
PROVIDERS: ATTEND Family Medicine
DX: M79.662 Pain in left lower leg (principal); I80.02 Phlebitis and thrombophlebitis of superficial vessels of left lower extremity; M79.89 Other specified soft tissue disorders

== ENCOUNTER → 2024-09-21 | Outpatient (CLI) | payer MEDICARE ==
--- NOTE | 2024-09-21 14:57 | MM ---
Reason for Exam: Hx of breast cancer, mastectomy. Last mammogram was performed 1 year(s) and 1 month(s) ago. Patient History: Menarche at age 10. First Full-Term at age 21. Postmenopausal. Breast cancer, right, age 73. Previous chemotherapy. Core Biopsy on the Right side. Excisional Biopsy on the Right side. Excisional Biopsy on the Right side. 2013, Mastectomy on the Right side. 02/10/2014, Malignant Core Biopsy on the right side. 09/03/2005, Benign Core Biopsy on the right side. 07/23/2001, Benign Excisional Biopsy on the right side. 07/05/2001, Benign Stereotactic Core Biopsy on the right side. Maternal cousin had breast cancer. Maternal aunt had breast cancer, age 75. Prior Study Comparison: 08/27/2021 Left Diagnostic Mammogram, [facility]. 08/29/2022 Left MG 3D diag mammo w/cad LT, [facility]. 08/31/2023 Left MG 3D diag mammo w/cad LT, [facility]. Tissue Density: Left: There are scattered areas of fibroglandular density. Findings: Analyzed By CAD. Redemonstrated benign vascular, oil cyst, and secretory calcifications. The previous cutaneous lesion medial posterior left breast has improved. No significant change from prior exams. Overall Assessment: Benign, BI-RAD 2 Management: Screening Mammogram of the left breast in 1 year. Results were given to the patient verbally at the time of exam. Patient should continue monthly self-breast exams. A clinical breast exam by your physician is recommended on an annual basis. This exam should not preclude additional follow-up of suspicious palpable abnormalities. [facility], , 09/21/2024 2:54 PM. Electronically signed and approved by: Gracie Chamberlain M.D. Radiologist
== END | disposition home or self-care (01) ==
LOC: RADMAMWWP 14:22
PROVIDERS: ATTEND Family Medicine
DX: Z85.3 Personal history of malignant neoplasm of breast (principal); Z78.0 Asymptomatic menopausal state; Z80.3 Family history of malignant neoplasm of breast; R92.332 Mammographic heterogeneous density, left breast
CPT/HCPCS: 77065; G0279; 77061